=== PATIENT | male | born 1975 | race Caucasian/White ===

== ENCOUNTER 2017-11-11 20:05 | Inpatient (IN) | payer BC ==
[~2017-11-11 20:05] MED LIST: GENTAMICIN IV PER PHARMACY XX
[2017-11-11] MEDS: SOD CHLORIDE 0.9% 1,000 ML IV ×3 (20:30→23:05)
[2017-11-11] MEDS: NORepinephrine 8MG/250 ML (PMX 250 ML IV (21:00)
[2017-11-11 21:36] LABS: AADO2 Arterial 428.1 mmHg (7.0-24.0); Arterial Base Excess -9.5 mmol/L (-3.0-3); Arterial Blood Gas Oxygen Sat 99.1 mmHG (95.0-98.0); Arterial COHb 0.3 % (0.0-3.0); Arterial Fraction of Oxyhgb 98.4 % (93.0-99.0); Arterial HCO3 17.7 mmol/L (22.0-26.0); Arterial MetHb 0.4 % (0.0-1.5); Arterial Total Hemglobin 13.5 g/dl (12.0-18.0); Arterial pCO2 43.4 mmhg (35-45); MODE VENT - AC; Site Right Brachial
[2017-11-11] MEDS ORDERED: GLUCAGON 1 MG INJ IM (23:30)
[2017-11-11] MEDS ORDERED: GLUCOSE GEL 15 GRAM TUBE PO ×2 (23:30)
[2017-11-11] MEDS ORDERED: GLUCOSE GEL 15 GRAM TUBE BUCCAL (23:30)
[2017-11-11] MEDS ORDERED: DEXTROSE 50% 50 ML SYRINGE IV ×2 (23:30)
[2017-11-11] MEDS: LEVALBUTEROL (NEB) 0.63 MG/3 ML AMP HHN (23:59)
[2017-11-11] MEDS: IPRATROPIUM (NEB) 0.5 MG/2.5 ML AMP HHN (23:59)
[2017-11-12] MEDS ORDERED: ACETAMINOPHEN 650 MG SUPP PR
[2017-11-12] MEDS: SOD CHLORIDE 0.9% 1,000 ML IV ×3 (00:05→10:49)
[2017-11-12] MEDS: HYDROCORTISONE 100 MG INJ IV ×4 (00:08→21:42)
[2017-11-12] MEDS: INSULIN ASPART [NOVOLOG] 3 ML PEN SC ×6 (01:26→21:49)
[2017-11-12] MEDS: LEVALBUTEROL (NEB) 0.63 MG/3 ML AMP HHN ×4 (02:43→19:52)
[2017-11-12] MEDS: IPRATROPIUM (NEB) 0.5 MG/2.5 ML AMP HHN ×4 (02:43→19:52)
[2017-11-12] MEDS: NORepinephrine 8MG/250 ML (PMX 250 ML IV (03:17)
[2017-11-12] MEDS: ACETAMINOPHEN 650MG/20.3ML CUP GTB (04:13)
[2017-11-12 04:58] LABS: ADD MAN DIFF? NO
[2017-11-12 05:01] LABS: ABNORMAL IP MESSAGE 1; BASOPHIL # 0.1 10^3/ul (0.0-0.1); BASOPHILS % 0.6 % (0.0-2.0); HEMATOCRIT 41.6 % (42.0-52.0); HEMOGLOBIN 12.8 g/dl (14.0-18.0); LYMPHOCYTES # 1.6 10^3/ul (0.8-2.9); LYMPHOCYTES % 7.3 % (15.0-51.0); MEAN CORPUSCULAR HEMOGLOBIN 28.7 pg (29.0-33.0); MEAN CORPUSCULAR HGB CONC 30.8 g/dl (32.0-37.0); MEAN CORPUSCULAR VOLUME 93.3 fl (82.0-101.0); MEAN PLATELET VOLUME 12.9 fl (7.4-10.4); MONOCYTE # 1.9 10^3/ul (0.3-0.9); MONOCYTES % 8.7 % (0.0-11.0); NEUTROPHILS % 82.4 % (39.0-77.0); PLATELET COUNT 323 10^3/UL (140-415); POSITIVE DIFF @See below; RED BLOOD COUNT 4.46 10^6/ul (4.70-6.10); RED CELL DISTRIBUTION WIDTH 19.2 % (11.5-14.5)
[2017-11-12 05:01] LABS: WHITE BLOOD COUNT 21.8 10^3/ul (4.8-10.8)
[2017-11-12 05:25] LABS: VANCOMYCIN,RANDOM 17.7 ug/ml
[2017-11-12 05:25] LABS: ANION GAP 33 (8-16); CARBON DIOXIDE 17 mmol/L (21-31); CHLORIDE 107 mmol/L (97-110); GLUCOSE 201 mg/dl (70-220); MAGNESIUM 3.3 mg/dl (1.7-2.5); POTASSIUM 5.5 mmol/L (3.5-5.1); SODIUM 151 mmol/L (135-144)
[2017-11-12 05:40] LABS: BLOOD UREA NITROGEN 160 mg/dl (7-20); CREATININE 12.03 mg/dl (0.61-1.24)
[2017-11-12] MEDS: SEVELAMER CARBONATE 800 MG TABLET PO ×3 (06:00→21:42)
[2017-11-12] MEDS: LANSOPRAZOLE 30 MG CAP GTB (06:16)
[2017-11-12] MEDS: PIPER-TAZO 2.25 GM (PMX) 50 ML IVPB ×3 (06:16→21:42)
[2017-11-12] MEDS ORDERED: NORepinephrine 8MG/250 ML BAG (07:00)
[2017-11-12 07:35] LABS: AADO2 Arterial 297.6 mmHg (7.0-24.0); Arterial Base Excess -10.2 mmol/L (-3.0-3); Arterial Blood Gas Oxygen Sat 95.3 mmHG (95.0-98.0); Arterial COHb 0.1 % (0.0-3.0); Arterial Fraction of Oxyhgb 94.9 % (93.0-99.0); Arterial MetHb 0.3 % (0.0-1.5); Arterial Total Hemglobin 13.7 g/dl (12.0-18.0); Arterial pCO2 36.5 mmhg (35-45); MODE VENT - AC; Site LB
[2017-11-12] MEDS: DEXTROSE 5%-0.45% NACL 1,000 ML IV (08:25)
[2017-11-12 08:30] LABS: ALANINE AMINOTRANSFERASE 44 IU/L (13-69); ALBUMIN 4.7 g/dl (3.3-4.9); ALKALINE PHOSPHATASE 168 IU/L (42-121); ASPARTATE AMINO TRANSFERASE 47 IU/L (15-46); TOTAL PROTEIN 8.2 g/dl (6.1-8.1)
[2017-11-12] MEDS: ASPIRIN 325 MG TAB GTB (08:34)
[2017-11-12] MEDS: ARTIFICIAL TEARS 15 ML OPH BOTH EYES ×2 (08:34→20:34)
[2017-11-12] MEDS: NYSTATIN SUSP 5 ML CUP PO ×4 (08:39→20:34)
[2017-11-12] MEDS: NYSTATIN 30 GM POWDER BTL TOP ×2 (08:40→20:34)
[2017-11-12] MEDS: MULTIVITAMINS/MINERALS TAB GTB (08:40)
[2017-11-12] MEDS: LACTOBACILLUS RHAMNOSUS CAP PO ×2 (08:40→20:35)
[2017-11-12] MEDS: HEPARIN 5,000 UNIT/0.5 ML VIAL SC ×2 (08:50→20:38)
[2017-11-12] MEDS ORDERED: VANCOMYCIN IV PER PHARMACY XX (09:00)
[2017-11-12] MEDS: [UNRECOGNIZED DRUG - OTHER] XX (09:18)
[2017-11-12] MEDS: PHENYLephrine 20MG IN 250 ML 250 ML IV ×2 (09:29→15:54)
[2017-11-12 10:13] LABS: VANCOMYCIN,RANDOM 18.1 ug/ml
[2017-11-12 12:39] LABS: HAAIG REFLEX REFLEX FILED
[2017-11-12] MEDS: FLUCONAZOLE 100 MG/50 ML (PMX) 50 ML IVPB (12:48)
[2017-11-12 13:36] LABS: HEPATITIS B SURFACE ANTIGEN NEGATIVE (NEGATIVE)
[2017-11-12 13:54] LABS: HEPATITIS B CORE ANTIBODY NEGATIVE (NEGATIVE); HEPATITIS C VIRAL ANTIBODY NEGATIVE (NEGATIVE)
[2017-11-12] MEDS: VANCOMYCIN 1 GM 250 ML IVPB (18:32)
[2017-11-12] MEDS: PHENYLephrine 40 MG in DEXTROSE 5% 496 ML IV ×2 (19:02→23:41)
[2017-11-12] MEDS: HEPARIN 1000 UNITS/ML 10 ML INJ CATHETER (19:17)
[2017-11-12] MEDS: VASOPRESSIN 60 UNIT in DEXTROSE 5% 57 ML IV (20:30)
[2017-11-12] MEDS: ATORVASTATIN 80 MG TAB GTB (20:35)
[2017-11-12] MEDS: MIDODRINE 5 MG TAB GTB (20:35)
[2017-11-12] MEDS: LORAZEPAM 2 MG INJ IV (20:40)
[2017-11-12] MEDS: MELATONIN 3 MG TABLET NGT (21:42)
[2017-11-12] MEDS: GENTAMICIN IN NACL, ISO-OSM 50 ML IVPB (23:41)
[2017-11-13 01:09] LABS: OCCULT BLOOD STOOL POSITIVE (NEGATIVE)
[2017-11-13] MEDS: LEVALBUTEROL (NEB) 0.63 MG/3 ML AMP HHN ×4 (01:31→19:36)
[2017-11-13] MEDS: IPRATROPIUM (NEB) 0.5 MG/2.5 ML AMP HHN ×4 (01:31→19:36)
[2017-11-13] MEDS: INSULIN ASPART [NOVOLOG] 3 ML PEN SC ×6 (01:45→21:21)
[2017-11-13 04:51] LABS: ADD MAN DIFF? NO
[2017-11-13 04:58] LABS: WHITE BLOOD COUNT 16.4 10^3/ul (4.8-10.8)
[2017-11-13 04:58] LABS: ABNORMAL IP MESSAGE 1; BASOPHIL # 0.1 10^3/ul (0.0-0.1); BASOPHILS % 0.4 % (0.0-2.0); HEMATOCRIT 32.9 % (42.0-52.0); LYMPHOCYTES # 1.6 10^3/ul (0.8-2.9); LYMPHOCYTES % 9.6 % (15.0-51.0); MEAN CORPUSCULAR HGB CONC 30.4 g/dl (32.0-37.0); MEAN CORPUSCULAR VOLUME 95.4 fl (82.0-101.0); MEAN PLATELET VOLUME 13.2 fl (7.4-10.4); MONOCYTE # 1.7 10^3/ul (0.3-0.9); MONOCYTES % 10.3 % (0.0-11.0); NEUTROPHILS % 79.1 % (39.0-77.0); PLATELET COUNT 246 10^3/UL (140-415); POSITIVE DIFF @See below; RED BLOOD COUNT 3.45 10^6/ul (4.70-6.10); RED CELL DISTRIBUTION WIDTH 19.3 % (11.5-14.5)
[2017-11-13 05:01] LABS: RETICULOCYTE COUNT # 0.093 X10^6 (0.020-0.110); RETICULOCYTE COUNT % 2.7 % (0.5-1.5)
[2017-11-13 05:01] LABS: RETICULOCYTE RBC 3.42
[2017-11-13 05:19] LABS: ALANINE AMINOTRANSFERASE 42 IU/L (13-69); ALBUMIN 3.3 g/dl (3.3-4.9); ALKALINE PHOSPHATASE 106 IU/L (42-121); ASPARTATE AMINO TRANSFERASE 30 IU/L (15-46); BILIRUBIN,INDIRECT 0.1 mg/dl (0-1.1); BILIRUBIN,TOTAL 0.1 mg/dl (0.2-1.3); TOTAL PROTEIN 5.8 g/dl (6.1-8.1)
[2017-11-13 05:21] LABS: ANION GAP 27 (8-16); CALCIUM 7.4 mg/dl (8.4-10.2); CARBON DIOXIDE 16 mmol/L (21-31); CHLORIDE 90 mmol/L (97-110); CREATININE 10.02 mg/dl (0.61-1.24); MAGNESIUM 2.5 mg/dl (1.7-2.5); PHOSPHORUS 6.1 mg/dl (2.5-4.9); POTASSIUM 4.3 mmol/L (3.5-5.1); SODIUM 129 mmol/L (135-144)
[2017-11-13] MEDS: SEVELAMER CARBONATE 0.8 GM PKT GTB ×3 (05:43→21:14)
[2017-11-13] MEDS: HYDROCORTISONE 100 MG INJ IV ×3 (05:43→21:14)
[2017-11-13] MEDS: PIPER-TAZO 2.25 GM (PMX) 50 ML IVPB ×3 (05:43→21:14)
[2017-11-13] MEDS: LANSOPRAZOLE 30 MG CAP GTB (05:44)
[2017-11-13 05:47] LABS: BLOOD UREA NITROGEN 124 mg/dl (7-20)
[2017-11-13 05:50] LABS: GLUCOSE 758 mg/dl (70-220)
[2017-11-13] MEDS: PHENYLephrine 40 MG in DEXTROSE 5% 496 ML IV (06:40)
[2017-11-13 07:08] LABS: ANION GAP 30 (8-16); CALCIUM 8.9 mg/dl (8.4-10.2); CARBON DIOXIDE 16 mmol/L (21-31); CHLORIDE 104 mmol/L (97-110); GLUCOSE 166 mg/dl (70-220); POTASSIUM 4.9 mmol/L (3.5-5.1); SODIUM 145 mmol/L (135-144)
[2017-11-13 07:17] LABS: BLOOD UREA NITROGEN 141 mg/dl (7-20)
[2017-11-13] MEDS: VASOPRESSIN 60 UNIT in DEXTROSE 5% 57 ML IV ×2 (08:30→20:30)
[2017-11-13 08:39] LABS: LACTIC ACID 0.8 mmol/L (0.5-2.0)
[2017-11-13] MEDS: ASPIRIN 325 MG TAB GTB (08:59)
[2017-11-13] MEDS: LACTOBACILLUS RHAMNOSUS CAP PO ×2 (08:59→21:15)
[2017-11-13] MEDS: DEXTROSE 5% 1,000 ML IV (08:59)
[2017-11-13] MEDS: NYSTATIN 30 GM POWDER BTL TOP ×2 (09:00→21:21)
[2017-11-13] MEDS: ARTIFICIAL TEARS 15 ML OPH BOTH EYES ×2 (09:00→21:22)
[2017-11-13] MEDS: MULTIVITAMINS/MINERALS TAB GTB (09:02)
[2017-11-13] MEDS: HEPARIN 5,000 UNIT/0.5 ML VIAL SC ×2 (09:04→21:17)
[2017-11-13] MEDS: FLUCONAZOLE 100 MG/50 ML (PMX) 50 ML IVPB (12:54)
[2017-11-13] MEDS: GENTAMICIN 100 MG/50 ML NS IVPB (16:01)
[2017-11-13] MEDS: MIDODRINE 5 MG TAB GTB (21:00)
[2017-11-13] MEDS: MELATONIN 3 MG TABLET NGT (21:14)
[2017-11-13] MEDS: ATORVASTATIN 80 MG TAB GTB (21:15)
[2017-11-13] MEDS: LORAZEPAM 2 MG INJ IV (23:05)
[2017-11-14] MEDS: LEVALBUTEROL (NEB) 0.63 MG/3 ML AMP HHN (01:44)
[2017-11-14] MEDS: IPRATROPIUM (NEB) 0.5 MG/2.5 ML AMP HHN ×4 (01:44→20:06)
[2017-11-14] MEDS: INSULIN ASPART [NOVOLOG] 3 ML PEN SC ×6 (01:56→21:00)
[2017-11-14] MEDS: DEXTROSE 5% 1,000 ML IV (04:42)
[2017-11-14 04:57] LABS: ADD MAN DIFF? NO
[2017-11-14 04:59] LABS: BASOPHILS % 0.3 % (0.0-2.0); EOSINOPHILS % 0.1 % (0.0-7.0); HEMATOCRIT 32.7 % (42.0-52.0); HEMOGLOBIN 10.3 g/dl (14.0-18.0); LYMPHOCYTES # 1.3 10^3/ul (0.8-2.9); LYMPHOCYTES % 14.2 % (15.0-51.0); MEAN CORPUSCULAR HEMOGLOBIN 28.6 pg (29.0-33.0); MEAN CORPUSCULAR HGB CONC 31.5 g/dl (32.0-37.0); MEAN CORPUSCULAR VOLUME 90.8 fl (82.0-101.0); MEAN PLATELET VOLUME 12.7 fl (7.4-10.4); MONOCYTE # 1.2 10^3/ul (0.3-0.9); MONOCYTES % 13.6 % (0.0-11.0); NEUTROPHIL # 6.5 10^3/ul (1.6-7.5); NEUTROPHILS % 71.4 % (39.0-77.0); NUCLEATED RED BLOOD CELLS% 0.2 /100WBC (0.0-0.0); PLATELET COUNT 183 10^3/UL (140-415); RED CELL DISTRIBUTION WIDTH 19.3 % (11.5-14.5)
[2017-11-14 04:59] LABS: WHITE BLOOD COUNT 9.1 10^3/ul (4.8-10.8)
[2017-11-14 05:38] LABS: ANION GAP 23 (8-16); BLOOD UREA NITROGEN 88 mg/dl (7-20); CALCIUM 9.5 mg/dl (8.4-10.2); CARBON DIOXIDE 25 mmol/L (21-31); CHLORIDE 99 mmol/L (97-110); CREATININE 8.64 mg/dl (0.61-1.24); GLUCOSE 158 mg/dl (70-220); MAGNESIUM 2.5 mg/dl (1.7-2.5); PHOSPHORUS 7.2 mg/dl (2.5-4.9); POTASSIUM 4.2 mmol/L (3.5-5.1); SODIUM 143 mmol/L (135-144)
[2017-11-14] MEDS: LANSOPRAZOLE 30 MG CAP GTB (05:46)
[2017-11-14] MEDS: HYDROCORTISONE 100 MG INJ IV ×2 (05:46→13:57)
[2017-11-14] MEDS: SEVELAMER CARBONATE 0.8 GM PKT GTB ×2 (05:46→13:57)
[2017-11-14] MEDS: PIPER-TAZO 2.25 GM (PMX) 50 ML IVPB ×2 (05:46→13:57)
[2017-11-14] MEDS ORDERED: IPRATROPIUM (HFA) 12.9 GM INHALER INH ×2 (06:00→08:00)
[2017-11-14] MEDS ORDERED: LEVALBUTEROL (HFA) 15 GM INHALER INH (06:00)
[2017-11-14 07:24] LABS: ALANINE AMINOTRANSFERASE 51 IU/L (13-69); ALBUMIN 4.2 g/dl (3.3-4.9); ALKALINE PHOSPHATASE 128 IU/L (42-121); ASPARTATE AMINO TRANSFERASE 43 IU/L (15-46); BILIRUBIN,INDIRECT 0.2 mg/dl (0-1.1); BILIRUBIN,TOTAL 0.2 mg/dl (0.2-1.3); TOTAL PROTEIN 7.4 g/dl (6.1-8.1)
[2017-11-14] MEDS: AMLODIPINE 10 MG TAB GTB (08:17)
[2017-11-14] MEDS: ARTIFICIAL TEARS 15 ML OPH BOTH EYES ×2 (08:17→21:00)
[2017-11-14] MEDS: NYSTATIN 30 GM POWDER BTL TOP (08:17)
[2017-11-14] MEDS: LACTOBACILLUS RHAMNOSUS CAP PO (08:17)
[2017-11-14] MEDS: LORAZEPAM 2 MG INJ IV ×2 (08:17→14:37)
[2017-11-14] MEDS: ASPIRIN 325 MG TAB GTB (08:17)
[2017-11-14] MEDS: MULTIVITAMINS/MINERALS TAB GTB (08:18)
[2017-11-14] MEDS: VASOPRESSIN 60 UNIT in DEXTROSE 5% 57 ML IV ×2 (08:30→20:01)
[2017-11-14] MEDS: HEPARIN 5,000 UNIT/0.5 ML VIAL SC (08:33)
[2017-11-14] MEDS: LEVALBUTEROL (HFA) 15 GM INHALER INH ×3 (09:11→20:06)
[2017-11-14 09:49] LABS: AADO2 Arterial 324.6 mmHg (7.0-24.0); Allen Test ACCEPTAB; Arterial Base Excess -0.9 mmol/L (-3.0-3); Arterial COHb 0.3 % (0.0-3.0); Arterial Fraction of Oxyhgb 89.6 % (93.0-99.0); Arterial HCO3 23.4 mmol/L (22.0-26.0); Arterial MetHb 0.1 % (0.0-1.5); Arterial Total Hemglobin 11.8 g/dl (12.0-18.0); Arterial pCO2 37.2 mmhg (35-45); MODE VENT - AC; Site Right Radial
[2017-11-14] MEDS: FLUCONAZOLE 100 MG/50 ML (PMX) 50 ML IVPB (12:22)
[2017-11-14] MEDS: EPOETIN 10000 UNITS/1 ML INJ (ESRD) SC (17:10)
[2017-11-14 18:13] LABS: HEPATITIS B SURFACE ANTIBODY NEGATIVE (NEGATIVE)
[2017-11-15] MEDS: DEXTROSE 5% 1,000 ML IV
[2017-11-15] MEDS: INSULIN ASPART [NOVOLOG] 3 ML PEN SC ×6 (01:00→21:00)
[2017-11-15] MEDS: ATORVASTATIN 80 MG TAB GTB ×2 (01:41→22:22)
[2017-11-15] MEDS: MULTIVITAMINS/MINERALS TAB GTB (01:41)
[2017-11-15] MEDS: MELATONIN 3 MG TABLET NGT ×2 (01:41→22:22)
[2017-11-15] MEDS: HYDROCORTISONE 100 MG INJ IV ×4 (01:42→22:23)
[2017-11-15] MEDS: LACTOBACILLUS RHAMNOSUS CAP PO ×3 (01:42→21:00)
[2017-11-15] MEDS: PIPER-TAZO 2.25 GM (PMX) 50 ML IVPB ×4 (01:42→22:23)
[2017-11-15] MEDS: NYSTATIN 30 GM POWDER BTL TOP ×3 (01:42→21:00)
[2017-11-15] MEDS: HEPARIN 5,000 UNIT/0.5 ML VIAL SC ×3 (01:43→22:25)
[2017-11-15] MEDS: NYSTATIN SUSP 5 ML CUP PO ×4 (01:50→18:02)
[2017-11-15] MEDS: SEVELAMER CARBONATE 0.8 GM PKT GTB ×4 (01:50→22:22)
[2017-11-15] MEDS: IPRATROPIUM (NEB) 0.5 MG/2.5 ML AMP HHN ×4 (02:11→19:56)
[2017-11-15] MEDS: LEVALBUTEROL (HFA) 15 GM INHALER INH ×4 (02:12→20:08)
[2017-11-15 05:21] LABS: ADD MAN DIFF? NO
[2017-11-15 05:23] LABS: WHITE BLOOD COUNT 10.5 10^3/ul (4.8-10.8)
[2017-11-15 05:23] LABS: BASOPHILS % 0.3 % (0.0-2.0); EOSINOPHILS % 0.1 % (0.0-7.0); HEMATOCRIT 37.2 % (42.0-52.0); HEMOGLOBIN 11.8 g/dl (14.0-18.0); LYMPHOCYTES % 9.6 % (15.0-51.0); MEAN CORPUSCULAR HEMOGLOBIN 29.1 pg (29.0-33.0); MEAN CORPUSCULAR HGB CONC 31.7 g/dl (32.0-37.0); MEAN CORPUSCULAR VOLUME 91.9 fl (82.0-101.0); MONOCYTE # 1.2 10^3/ul (0.3-0.9); MONOCYTES % 10.9 % (0.0-11.0); NEUTROPHIL # 8.2 10^3/ul (1.6-7.5); NEUTROPHILS % 78.2 % (39.0-77.0); NUCLEATED RED BLOOD CELLS% 0.4 /100WBC (0.0-0.0); PLATELET COUNT 195 10^3/UL (140-415); RED BLOOD COUNT 4.05 10^6/ul (4.70-6.10); RED CELL DISTRIBUTION WIDTH 19.6 % (11.5-14.5)
[2017-11-15] MEDS: LANSOPRAZOLE 30 MG CAP GTB (05:42)
[2017-11-15 05:54] LABS: ANION GAP 25 (8-16); BLOOD UREA NITROGEN 57 mg/dl (7-20); CALCIUM 10.3 mg/dl (8.4-10.2); CARBON DIOXIDE 24 mmol/L (21-31); CHLORIDE 98 mmol/L (97-110); GLUCOSE 162 mg/dl (70-220); MAGNESIUM 2.6 mg/dl (1.7-2.5); PHOSPHORUS 6.1 mg/dl (2.5-4.9); POTASSIUM 3.6 mmol/L (3.5-5.1); SODIUM 143 mmol/L (135-144)
[2017-11-15 06:00] LABS: CREATININE 6.45 mg/dl (0.61-1.24)
[2017-11-15] MEDS: AMLODIPINE 10 MG TAB GTB (09:00)
[2017-11-15] MEDS: ARTIFICIAL TEARS 15 ML OPH BOTH EYES ×2 (09:11→21:00)
[2017-11-15] MEDS: ASPIRIN 325 MG TAB GTB (09:31)
[2017-11-15] MEDS: FLUCONAZOLE 100 MG/50 ML (PMX) 50 ML IVPB (15:58)
[2017-11-16] MEDS: INSULIN ASPART [NOVOLOG] 3 ML PEN SC ×6 (01:18→20:41)
[2017-11-16] MEDS: LEVALBUTEROL (HFA) 15 GM INHALER INH ×4 (01:19→19:49)
[2017-11-16] MEDS: IPRATROPIUM (NEB) 0.5 MG/2.5 ML AMP HHN ×4 (01:27→19:48)
[2017-11-16] MEDS: PIPER-TAZO 2.25 GM (PMX) 50 ML IVPB ×3 (05:27→22:00)
[2017-11-16] MEDS: HYDROCORTISONE 100 MG INJ IV ×3 (05:27→22:00)
[2017-11-16] MEDS: NYSTATIN SUSP 5 ML CUP PO ×4 (05:28→18:08)
[2017-11-16] MEDS: SEVELAMER CARBONATE 0.8 GM PKT GTB ×3 (05:28→22:00)
[2017-11-16] MEDS: LANSOPRAZOLE 30 MG CAP GTB (05:28)
[2017-11-16 08:03] LABS: ADD MAN DIFF? NO
[2017-11-16 08:10] LABS: WHITE BLOOD COUNT 11.2 10^3/ul (4.8-10.8)
[2017-11-16 08:10] LABS: ABNORMAL IP MESSAGE 1; BASOPHILS % 0.4 % (0.0-2.0); EOSINOPHILS % 0.3 % (0.0-7.0); HEMOGLOBIN 12.1 g/dl (14.0-18.0); LYMPHOCYTES # 1.4 10^3/ul (0.8-2.9); LYMPHOCYTES % 12.2 % (15.0-51.0); MEAN CORPUSCULAR HEMOGLOBIN 28.9 pg (29.0-33.0); MEAN CORPUSCULAR VOLUME 93.3 fl (82.0-101.0); MEAN PLATELET VOLUME 12.7 fl (7.4-10.4); MONOCYTE # 1.9 10^3/ul (0.3-0.9); MONOCYTES % 17.1 % (0.0-11.0); NEUTROPHIL # 7.7 10^3/ul (1.6-7.5); NEUTROPHILS % 68.4 % (39.0-77.0); NUCLEATED RED BLOOD CELLS # 0.1 10^3/ul (0.0-0.0); NUCLEATED RED BLOOD CELLS% 0.9 /100WBC (0.0-0.0); PLATELET COUNT 226 10^3/UL (140-415); POSITIVE DIFF @See below; RED BLOOD COUNT 4.18 10^6/ul (4.70-6.10); RED CELL DISTRIBUTION WIDTH 19.3 % (11.5-14.5)
[2017-11-16 08:18] LABS: ANION GAP 28 (8-16); BLOOD UREA NITROGEN 93 mg/dl (7-20); CALCIUM 9.9 mg/dl (8.4-10.2); CARBON DIOXIDE 21 mmol/L (21-31); CHLORIDE 99 mmol/L (97-110); GLUCOSE 176 mg/dl (70-220); MAGNESIUM 3.1 mg/dl (1.7-2.5); PHOSPHORUS 8.3 mg/dl (2.5-4.9); POTASSIUM 3.3 mmol/L (3.5-5.1); SODIUM 145 mmol/L (135-144)
[2017-11-16 08:28] LABS: CREATININE 8.67 mg/dl (0.61-1.24)
[2017-11-16] MEDS: ACETAMINOPHEN 650MG/20.3ML CUP GTB (08:48)
[2017-11-16] MEDS: MULTIVITAMINS/MINERALS TAB GTB (08:48)
[2017-11-16] MEDS: ASPIRIN 325 MG TAB GTB (08:48)
[2017-11-16] MEDS: LACTOBACILLUS RHAMNOSUS CAP PO ×2 (08:49→20:27)
[2017-11-16] MEDS: ARTIFICIAL TEARS 15 ML OPH BOTH EYES ×2 (08:50→21:00)
[2017-11-16] MEDS: NYSTATIN 30 GM POWDER BTL TOP ×2 (08:50→21:05)
[2017-11-16] MEDS: HEPARIN 5,000 UNIT/0.5 ML VIAL SC ×2 (08:58→20:41)
[2017-11-16] MEDS: AMLODIPINE 10 MG TAB GTB ×2 (09:00→18:09)
[2017-11-16] MEDS: HEPARIN 1000 UNITS/ML 10 ML INJ CATHETER (12:15)
[2017-11-16] MEDS: ONDANSETRON 4 MG INJ IV (12:57)
[2017-11-16] MEDS ORDERED: ONDANSETRON 4 MG INJ IV (13:00)
[2017-11-16] MEDS: FLUCONAZOLE 100 MG/50 ML (PMX) 50 ML IVPB (14:13)
[2017-11-16] MEDS: MELATONIN 3 MG TABLET NGT (20:27)
[2017-11-16] MEDS: ATORVASTATIN 80 MG TAB GTB (20:27)
[2017-11-17] MEDS: NYSTATIN SUSP 5 ML CUP PO ×4 (00:27→17:34)
[2017-11-17] MEDS: INSULIN ASPART [NOVOLOG] 3 ML PEN SC ×6 (00:34→21:35)
[2017-11-17] MEDS: ONDANSETRON 4 MG INJ IV (00:35)
[2017-11-17] MEDS: LEVALBUTEROL (HFA) 15 GM INHALER INH ×4 (02:24→19:50)
[2017-11-17] MEDS: IPRATROPIUM (NEB) 0.5 MG/2.5 ML AMP HHN ×4 (02:24→19:56)
[2017-11-17] MEDS: HYDROCORTISONE 100 MG INJ IV ×2 (05:52→21:25)
[2017-11-17] MEDS: SEVELAMER CARBONATE 0.8 GM PKT GTB ×3 (05:52→21:25)
[2017-11-17] MEDS: PIPER-TAZO 2.25 GM (PMX) 50 ML IVPB ×3 (05:52→21:25)
[2017-11-17] MEDS: LANSOPRAZOLE 30 MG CAP GTB (05:53)
[2017-11-17 08:39] LABS: ADD MAN DIFF? NO
[2017-11-17 08:44] LABS: BASOPHILS % 0.2 % (0.0-2.0); EOSINOPHILS % 0.3 % (0.0-7.0); HEMATOCRIT 42.2 % (42.0-52.0); HEMOGLOBIN 12.9 g/dl (14.0-18.0); LYMPHOCYTES # 1.2 10^3/ul (0.8-2.9); MEAN CORPUSCULAR HEMOGLOBIN 27.9 pg (29.0-33.0); MEAN CORPUSCULAR HGB CONC 30.6 g/dl (32.0-37.0); MEAN CORPUSCULAR VOLUME 91.3 fl (82.0-101.0); MEAN PLATELET VOLUME 12.6 fl (7.4-10.4); MONOCYTE # 1.4 10^3/ul (0.3-0.9); MONOCYTES % 10.7 % (0.0-11.0); NEUTROPHIL # 10.1 10^3/ul (1.6-7.5); NEUTROPHILS % 77.6 % (39.0-77.0); NUCLEATED RED BLOOD CELLS # 0.1 10^3/ul (0.0-0.0); NUCLEATED RED BLOOD CELLS% 0.5 /100WBC (0.0-0.0); PLATELET COUNT 246 10^3/UL (140-415); RED BLOOD COUNT 4.62 10^6/ul (4.70-6.10); RED CELL DISTRIBUTION WIDTH 19.5 % (11.5-14.5)
[2017-11-17 08:44] LABS: WHITE BLOOD COUNT 12.9 10^3/ul (4.8-10.8)
[2017-11-17 09:04] LABS: ANION GAP 28 (8-16); BLOOD UREA NITROGEN 92 mg/dl (7-20); CALCIUM 9.6 mg/dl (8.4-10.2); CARBON DIOXIDE 21 mmol/L (21-31); CHLORIDE 94 mmol/L (97-110); GLUCOSE 190 mg/dl (70-220); SODIUM 140 mmol/L (135-144)
[2017-11-17 09:13] LABS: CREATININE 7.74 mg/dl (0.61-1.24)
[2017-11-17] MEDS: ARTIFICIAL TEARS 15 ML OPH BOTH EYES ×2 (09:41→21:36)
[2017-11-17] MEDS: ASPIRIN 325 MG TAB GTB (09:41)
[2017-11-17] MEDS: MULTIVITAMINS/MINERALS TAB GTB (09:43)
[2017-11-17] MEDS: LACTOBACILLUS RHAMNOSUS CAP PO ×2 (09:43→21:35)
[2017-11-17] MEDS: NYSTATIN 30 GM POWDER BTL TOP ×2 (09:43→21:36)
[2017-11-17] MEDS: HEPARIN 5,000 UNIT/0.5 ML VIAL SC ×2 (09:50→21:33)
[2017-11-17] MEDS: POTASSIUM CHLORIDE 20 MEQ POWDER FOR ORAL SOLN GTB (12:54)
[2017-11-17] MEDS: FLUCONAZOLE 100 MG/50 ML (PMX) 50 ML IVPB (12:55)
[2017-11-17] MEDS: MELATONIN 3 MG TABLET NGT (21:25)
[2017-11-17] MEDS: ATORVASTATIN 80 MG TAB GTB (21:26)
[2017-11-17] MEDS: METOPROLOL 50 MG TAB GTB (21:36)
[2017-11-18] MEDS: NYSTATIN SUSP 5 ML CUP PO ×4 (00:42→18:26)
[2017-11-18] MEDS: INSULIN ASPART [NOVOLOG] 3 ML PEN SC ×6 (00:46→21:18)
[2017-11-18] MEDS: LEVALBUTEROL (HFA) 15 GM INHALER INH ×5 (02:22→19:13)
[2017-11-18] MEDS: IPRATROPIUM (NEB) 0.5 MG/2.5 ML AMP HHN ×5 (02:26→19:13)
[2017-11-18] MEDS: LANSOPRAZOLE 30 MG CAP GTB (05:57)
[2017-11-18] MEDS: SEVELAMER CARBONATE 0.8 GM PKT GTB ×3 (05:57→21:13)
[2017-11-18] MEDS: PIPER-TAZO 2.25 GM (PMX) 50 ML IVPB ×3 (05:57→21:23)
[2017-11-18 06:33] LABS: ADD MAN DIFF? NO; HAAIG REFLEX REFLEX FILED
[2017-11-18 06:34] LABS: ABNORMAL IP MESSAGE 1; BASOPHIL # 0.1 10^3/ul (0.0-0.1); BASOPHILS % 0.5 % (0.0-2.0); EOSINOPHILS # 0.3 10^3/ul (0.0-0.5); EOSINOPHILS % 2.2 % (0.0-7.0); HEMATOCRIT 41.1 % (42.0-52.0); HEMOGLOBIN 13.2 g/dl (14.0-18.0); LYMPHOCYTES # 1.6 10^3/ul (0.8-2.9); LYMPHOCYTES % 11.7 % (15.0-51.0); MEAN CORPUSCULAR HEMOGLOBIN 29.2 pg (29.0-33.0); MEAN CORPUSCULAR HGB CONC 32.1 g/dl (32.0-37.0); MEAN CORPUSCULAR VOLUME 90.9 fl (82.0-101.0); MEAN PLATELET VOLUME 13.1 fl (7.4-10.4); MONOCYTE # 2.3 10^3/ul (0.3-0.9); MONOCYTES % 17.2 % (0.0-11.0); NEUTROPHILS % 66.1 % (39.0-77.0); NUCLEATED RED BLOOD CELLS% 0.1 /100WBC (0.0-0.0); PLATELET COUNT 265 10^3/UL (140-415); POSITIVE DIFF @See below; RED BLOOD COUNT 4.52 10^6/ul (4.70-6.10); RED CELL DISTRIBUTION WIDTH 18.6 % (11.5-14.5)
[2017-11-18 06:34] LABS: WHITE BLOOD COUNT 13.6 10^3/ul (4.8-10.8)
[2017-11-18 07:02] LABS: ANION GAP 31 (8-16); CALCIUM 9.2 mg/dl (8.4-10.2); CARBON DIOXIDE 18 mmol/L (21-31); CHLORIDE 93 mmol/L (97-110); GLUCOSE 163 mg/dl (70-220); MAGNESIUM 2.8 mg/dl (1.7-2.5); PHOSPHORUS 10.4 mg/dl (2.5-4.9); POTASSIUM 3.1 mmol/L (3.5-5.1); SODIUM 139 mmol/L (135-144)
[2017-11-18 07:16] LABS: BLOOD UREA NITROGEN 126 mg/dl (7-20); CREATININE 9.12 mg/dl (0.61-1.24)
[2017-11-18 07:32] LABS: HEPATITIS B SURFACE ANTIGEN NEGATIVE (NEGATIVE)
[2017-11-18 07:49] LABS: HEPATITIS C VIRAL ANTIBODY NEGATIVE (NEGATIVE)
[2017-11-18 08:18] LABS: HEPATITIS B CORE ANTIBODY NEGATIVE (NEGATIVE)
[2017-11-18] MEDS: LACTOBACILLUS RHAMNOSUS CAP PO ×2 (09:00→21:22)
[2017-11-18] MEDS: MULTIVITAMINS/MINERALS TAB GTB (09:28)
[2017-11-18] MEDS: POTASSIUM CHLORIDE 20 MEQ POWDER FOR ORAL SOLN GTB (09:29)
[2017-11-18] MEDS: ASPIRIN 325 MG TAB GTB (09:29)
[2017-11-18] MEDS: HYDROCORTISONE 100 MG INJ IV (09:29)
[2017-11-18] MEDS: HEPARIN 5,000 UNIT/0.5 ML VIAL SC ×2 (09:31→21:18)
[2017-11-18] MEDS: ARTIFICIAL TEARS 15 ML OPH BOTH EYES ×2 (09:33→21:12)
[2017-11-18] MEDS: METOPROLOL 50 MG TAB GTB ×2 (09:33→21:00)
[2017-11-18] MEDS: FLUCONAZOLE 100 MG/50 ML (PMX) 50 ML IVPB (12:17)
[2017-11-18] MEDS: HEPARIN 1000 UNITS/ML 10 ML INJ CATHETER (18:02)
[2017-11-18] MEDS: ATORVASTATIN 80 MG TAB GTB (21:13)
[2017-11-18] MEDS: MELATONIN 3 MG TABLET NGT (21:22)
[2017-11-19] MEDS: INSULIN ASPART [NOVOLOG] 3 ML PEN SC ×6 (01:00→22:06)
[2017-11-19] MEDS: IPRATROPIUM (NEB) 0.5 MG/2.5 ML AMP HHN ×4 (02:00→20:19)
[2017-11-19] MEDS: LEVALBUTEROL (HFA) 15 GM INHALER INH ×2 (02:00→08:00)
[2017-11-19 02:29] LABS: AADO2 Arterial 531.7 mmHg (7.0-24.0); Arterial Blood Gas Oxygen Sat 98.5 mmHG (95.0-98.0); Arterial COHb 0.7 % (0.0-3.0); Arterial Fraction of Oxyhgb 97.5 % (93.0-99.0); Arterial HCO3 19.5 mmol/L (22.0-26.0); Arterial MetHb 0.3 % (0.0-1.5); Arterial Total Hemglobin 14.6 g/dl (12.0-18.0); Arterial pCO2 38.8 mmhg (35-45); MODE MASK - NRB; Site Right Brachial
[2017-11-19] MEDS: HYDROmorphONE 0.5 MG/0.5 ML SYG IV (03:40)
[2017-11-19 04:23] LABS: AADO2 Arterial 478.4 mmHg (7.0-24.0); Allen Test ACCEPTAB; Arterial Base Excess -6.3 mmol/L (-3.0-3); Arterial Blood Gas Oxygen Sat 99.1 mmHG (95.0-98.0); Arterial COHb 0.2 % (0.0-3.0); Arterial Fraction of Oxyhgb 98.5 % (93.0-99.0); Arterial HCO3 19.5 mmol/L (22.0-26.0); Arterial MetHb 0.4 % (0.0-1.5); Arterial Total Hemglobin 14.2 g/dl (12.0-18.0); Arterial pCO2 39.9 mmhg (35-45); MODE MASK - NRB; Site Right Radial
[2017-11-19 05:28] LABS: ADD MAN DIFF? NO
[2017-11-19 05:41] LABS: ABNORMAL IP MESSAGE 1; BASOPHIL # 0.1 10^3/ul (0.0-0.1); BASOPHILS % 0.5 % (0.0-2.0); EOSINOPHILS # 0.5 10^3/ul (0.0-0.5); EOSINOPHILS % 2.9 % (0.0-7.0); HEMATOCRIT 42.7 % (42.0-52.0); HEMOGLOBIN 13.3 g/dl (14.0-18.0); LYMPHOCYTES # 1.2 10^3/ul (0.8-2.9); LYMPHOCYTES % 6.8 % (15.0-51.0); MEAN CORPUSCULAR HEMOGLOBIN 28.6 pg (29.0-33.0); MEAN CORPUSCULAR HGB CONC 31.1 g/dl (32.0-37.0); MEAN CORPUSCULAR VOLUME 91.8 fl (82.0-101.0); MEAN PLATELET VOLUME 13.4 fl (7.4-10.4); MONOCYTE # 2.6 10^3/ul (0.3-0.9); NEUTROPHIL # 12.5 10^3/ul (1.6-7.5); NEUTROPHILS % 70.9 % (39.0-77.0); NUCLEATED RED BLOOD CELLS% 0.1 /100WBC (0.0-0.0); PLATELET COUNT 290 10^3/UL (140-415); POSITIVE DIFF @See below; RED BLOOD COUNT 4.65 10^6/ul (4.70-6.10)
[2017-11-19 05:41] LABS: WHITE BLOOD COUNT 17.6 10^3/ul (4.8-10.8)
[2017-11-19] MEDS: NYSTATIN SUSP 5 ML CUP PO ×4 (06:00→17:45)
[2017-11-19] MEDS: LANSOPRAZOLE 30 MG CAP GTB (06:00)
[2017-11-19] MEDS: SEVELAMER CARBONATE 0.8 GM PKT GTB ×3 (06:00→22:00)
[2017-11-19 06:04] LABS: ALANINE AMINOTRANSFERASE 52 IU/L (13-69); ALBUMIN 4.1 g/dl (3.3-4.9); ALKALINE PHOSPHATASE 199 IU/L (42-121); ASPARTATE AMINO TRANSFERASE 44 IU/L (15-46); BILIRUBIN,INDIRECT 0.2 mg/dl (0-1.1); BILIRUBIN,TOTAL 0.2 mg/dl (0.2-1.3); TOTAL PROTEIN 7.1 g/dl (6.1-8.1)
[2017-11-19 06:25] LABS: ANION GAP 25 (8-16); BLOOD UREA NITROGEN 95 mg/dl (7-20); CALCIUM 9.1 mg/dl (8.4-10.2); CARBON DIOXIDE 21 mmol/L (21-31); CHLORIDE 96 mmol/L (97-110); GLUCOSE 163 mg/dl (70-220); MAGNESIUM 2.5 mg/dl (1.7-2.5); POTASSIUM 3.4 mmol/L (3.5-5.1); SODIUM 139 mmol/L (135-144)
[2017-11-19 06:32] LABS: CREATININE 7.15 mg/dl (0.61-1.24)
[2017-11-19] MEDS: PIPER-TAZO 2.25 GM (PMX) 50 ML IVPB (06:44)
[2017-11-19] MEDS: METOPROLOL 50 MG TAB GTB ×2 (09:00→21:00)
[2017-11-19] MEDS: ARTIFICIAL TEARS 15 ML OPH BOTH EYES ×2 (09:00→21:22)
[2017-11-19] MEDS: POTASSIUM CHLORIDE 20 MEQ POWDER FOR ORAL SOLN GTB (09:43)
[2017-11-19] MEDS: LACTOBACILLUS RHAMNOSUS CAP PO ×2 (09:44→21:00)
[2017-11-19] MEDS: ASPIRIN 325 MG TAB GTB (09:44)
[2017-11-19] MEDS: predniSONE 20 MG TAB PO (09:44)
[2017-11-19] MEDS: MULTIVITAMINS/MINERALS TAB GTB (09:44)
[2017-11-19] MEDS: HEPARIN 5,000 UNIT/0.5 ML VIAL SC ×2 (09:45→21:00)
[2017-11-19] MEDS ORDERED: VANCOMYCIN IV PER PHARMACY XX (11:30)
[2017-11-19] MEDS: MEROPENEM 500MG/50 ML (PMX) 50 ML IVPB (12:53)
[2017-11-19 12:55] LABS: LACTIC ACID 2.2 mmol/L (0.5-2.0)
[2017-11-19] MEDS: FLUCONAZOLE 100 MG/50 ML (PMX) 50 ML IVPB (12:56)
[2017-11-19] MEDS: VANCOMYCIN 1.25 GM in SOD CHLORIDE 0.9% 250 ML IVPB (13:52)
[2017-11-19] MEDS: LEVALBUTEROL (NEB) 0.63 MG/3 ML AMP HHN ×2 (14:34→20:19)
[2017-11-19] MEDS ORDERED: HYDROmorphONE 2 MG TAB PO (16:00)
[2017-11-19] MEDS: ATORVASTATIN 80 MG TAB GTB (21:00)
[2017-11-19] MEDS: MELATONIN 3 MG TABLET NGT (21:00)
[2017-11-20] MEDS: INSULIN ASPART [NOVOLOG] 3 ML PEN SC ×6 (01:00→21:00)
[2017-11-20] MEDS: LEVALBUTEROL (NEB) 0.63 MG/3 ML AMP HHN ×4 (01:02→19:35)
[2017-11-20] MEDS: IPRATROPIUM (NEB) 0.5 MG/2.5 ML AMP HHN ×5 (01:02→19:35)
[2017-11-20 05:29] LABS: ADD MAN DIFF? NO
[2017-11-20 05:31] LABS: WHITE BLOOD COUNT 15.7 10^3/ul (4.8-10.8)
[2017-11-20 05:31] LABS: ABNORMAL IP MESSAGE 1; BASOPHIL # 0.1 10^3/ul (0.0-0.1); BASOPHILS % 0.6 % (0.0-2.0); EOSINOPHILS # 0.6 10^3/ul (0.0-0.5); EOSINOPHILS % 3.6 % (0.0-7.0); HEMATOCRIT 39.4 % (42.0-52.0); LYMPHOCYTES # 1.8 10^3/ul (0.8-2.9); LYMPHOCYTES % 11.2 % (15.0-51.0); MEAN CORPUSCULAR HEMOGLOBIN 28.4 pg (29.0-33.0); MEAN CORPUSCULAR HGB CONC 30.5 g/dl (32.0-37.0); MEAN CORPUSCULAR VOLUME 93.1 fl (82.0-101.0); MEAN PLATELET VOLUME 13.1 fl (7.4-10.4); MONOCYTE # 2.3 10^3/ul (0.3-0.9); MONOCYTES % 14.7 % (0.0-11.0); NEUTROPHIL # 10.2 10^3/ul (1.6-7.5); NUCLEATED RED BLOOD CELLS% 0.2 /100WBC (0.0-0.0); PLATELET COUNT 291 10^3/UL (140-415); POSITIVE DIFF @See below; RED BLOOD COUNT 4.23 10^6/ul (4.70-6.10); RED CELL DISTRIBUTION WIDTH 18.8 % (11.5-14.5)
[2017-11-20 05:59] LABS: ANION GAP 27 (8-16); BLOOD UREA NITROGEN 119 mg/dl (7-20); CALCIUM 9.8 mg/dl (8.4-10.2); CARBON DIOXIDE 20 mmol/L (21-31); CHLORIDE 97 mmol/L (97-110); GLUCOSE 128 mg/dl (70-220); MAGNESIUM 2.8 mg/dl (1.7-2.5); PHOSPHORUS 10.5 mg/dl (2.5-4.9); POTASSIUM 4.7 mmol/L (3.5-5.1); SODIUM 139 mmol/L (135-144)
[2017-11-20] MEDS: LANSOPRAZOLE 30 MG CAP GTB (06:00)
[2017-11-20] MEDS: SEVELAMER CARBONATE 0.8 GM PKT GTB ×3 (06:00→21:07)
[2017-11-20 06:07] LABS: CREATININE 8.65 mg/dl (0.61-1.24)
[2017-11-20] MEDS: NYSTATIN SUSP 5 ML CUP PO ×4 (06:24→18:36)
[2017-11-20] MEDS: ASPIRIN 325 MG TAB GTB (08:07)
[2017-11-20] MEDS: predniSONE 20 MG TAB PO (08:07)
[2017-11-20] MEDS: METOPROLOL 50 MG TAB GTB ×2 (08:07→21:00)
[2017-11-20] MEDS: ARTIFICIAL TEARS 15 ML OPH BOTH EYES ×2 (08:08→21:00)
[2017-11-20] MEDS: ALBUMIN HUMAN 25% 50 ML IV ×2 (11:42→12:37)
[2017-11-20 14:23] LABS: AADO2 Arterial 587.2 mmHg (7.0-24.0); Allen Test ACCEPTAB; Arterial Base Excess -2.7 mmol/L (-3.0-3); Arterial Blood Gas Oxygen Sat 93.6 mmHG (95.0-98.0); Arterial COHb 0.9 % (0.0-3.0); Arterial Fraction of Oxyhgb 92.5 % (93.0-99.0); Arterial HCO3 21.7 mmol/L (22.0-26.0); Arterial MetHb 0.3 % (0.0-1.5); Arterial Total Hemglobin 13.7 g/dl (12.0-18.0); Arterial pCO2 36.6 mmhg (35-45); MODE TRACH COLLAR; Site Right Radial
[2017-11-20] MEDS: LACTOBACILLUS RHAMNOSUS CAP PO ×2 (14:40→21:00)
[2017-11-20] MEDS: MULTIVITAMINS/MINERALS TAB GTB (14:40)
[2017-11-20] MEDS: MEROPENEM 500MG/50 ML (PMX) 50 ML IVPB (14:41)
[2017-11-20] MEDS: HEPARIN 5,000 UNIT/0.5 ML VIAL SC ×2 (14:52→21:04)
[2017-11-20] MEDS: FLUCONAZOLE 100 MG/50 ML (PMX) 50 ML IVPB (15:02)
[2017-11-20] MEDS: HEPARIN 1000 UNITS/ML 10 ML INJ CATHETER (15:07)
[2017-11-20] MEDS: ATORVASTATIN 80 MG TAB GTB (21:00)
[2017-11-20] MEDS: MELATONIN 3 MG TABLET NGT (21:00)
[2017-11-21] MEDS: NYSTATIN SUSP 5 ML CUP PO ×4 (00:02→17:28)
[2017-11-21] MEDS: INSULIN ASPART [NOVOLOG] 3 ML PEN SC ×6 (01:00→21:00)
[2017-11-21] MEDS: LEVALBUTEROL (NEB) 0.63 MG/3 ML AMP HHN ×4 (01:14→19:57)
[2017-11-21] MEDS: IPRATROPIUM (NEB) 0.5 MG/2.5 ML AMP HHN ×4 (01:14→19:57)
[2017-11-21] MEDS: SEVELAMER CARBONATE 0.8 GM PKT GTB ×3 (05:42→21:21)
[2017-11-21] MEDS: LANSOPRAZOLE 30 MG CAP GTB (05:42)
[2017-11-21 05:53] LABS: ADD MAN DIFF? NO
[2017-11-21 06:05] LABS: WHITE BLOOD COUNT 12.1 10^3/ul (4.8-10.8)
[2017-11-21 06:05] LABS: ABNORMAL IP MESSAGE 1; BASOPHIL # 0.1 10^3/ul (0.0-0.1); BASOPHILS % 0.5 % (0.0-2.0); EOSINOPHILS # 0.7 10^3/ul (0.0-0.5); EOSINOPHILS % 5.9 % (0.0-7.0); HEMATOCRIT 38.1 % (42.0-52.0); HEMOGLOBIN 11.6 g/dl (14.0-18.0); LYMPHOCYTES # 1.5 10^3/ul (0.8-2.9); LYMPHOCYTES % 12.6 % (15.0-51.0); MEAN CORPUSCULAR HEMOGLOBIN 28.4 pg (29.0-33.0); MEAN CORPUSCULAR HGB CONC 30.4 g/dl (32.0-37.0); MEAN CORPUSCULAR VOLUME 93.2 fl (82.0-101.0); MEAN PLATELET VOLUME 12.5 fl (7.4-10.4); MONOCYTE # 1.5 10^3/ul (0.3-0.9); MONOCYTES % 12.5 % (0.0-11.0); NEUTROPHIL # 7.6 10^3/ul (1.6-7.5); NEUTROPHILS % 63.1 % (39.0-77.0); PLATELET COUNT 247 10^3/UL (140-415); POSITIVE DIFF @See below; RED BLOOD COUNT 4.09 10^6/ul (4.70-6.10); RED CELL DISTRIBUTION WIDTH 19.2 % (11.5-14.5)
[2017-11-21 06:29] LABS: ANION GAP 26 (8-16); BLOOD UREA NITROGEN 77 mg/dl (7-20); CALCIUM 9.7 mg/dl (8.4-10.2); CARBON DIOXIDE 22 mmol/L (21-31); CHLORIDE 98 mmol/L (97-110); GLUCOSE 103 mg/dl (70-220); MAGNESIUM 2.7 mg/dl (1.7-2.5); POTASSIUM 4.9 mmol/L (3.5-5.1); SODIUM 141 mmol/L (135-144)
[2017-11-21 06:36] LABS: ALANINE AMINOTRANSFERASE 33 IU/L (13-69); ALBUMIN 4.3 g/dl (3.3-4.9); ALKALINE PHOSPHATASE 102 IU/L (42-121); ASPARTATE AMINO TRANSFERASE 32 IU/L (15-46); BILIRUBIN,INDIRECT 0.2 mg/dl (0-1.1); BILIRUBIN,TOTAL 0.2 mg/dl (0.2-1.3); TOTAL PROTEIN 7.3 g/dl (6.1-8.1)
[2017-11-21 06:39] LABS: VANCOMYCIN,RANDOM 17.4 ug/ml
[2017-11-21 06:40] LABS: CREATININE 6.75 mg/dl (0.61-1.24)
[2017-11-21] MEDS: ASPIRIN 325 MG TAB GTB (08:54)
[2017-11-21] MEDS: MULTIVITAMINS/MINERALS TAB GTB (08:54)
[2017-11-21] MEDS: LACTOBACILLUS RHAMNOSUS CAP PO ×2 (08:54→21:13)
[2017-11-21] MEDS: predniSONE 20 MG TAB PO (08:55)
[2017-11-21] MEDS: MEROPENEM 500MG/50 ML (PMX) 50 ML IVPB (08:55)
[2017-11-21] MEDS: ARTIFICIAL TEARS 15 ML OPH BOTH EYES ×2 (08:56→21:14)
[2017-11-21] MEDS: HEPARIN 5,000 UNIT/0.5 ML VIAL SC ×2 (09:04→21:17)
[2017-11-21] MEDS: METOPROLOL 50 MG TAB GTB ×2 (09:10→21:14)
[2017-11-21 10:54] LABS: CREATINE KINASE 38 IU/L (23-200)
[2017-11-21 11:07] LABS: CK INDEX 19.1; CK-MB 7.25 ng/ml (0.0-2.4)
[2017-11-21 11:10] LABS: TROPONIN-I 0.133 ng/ml (0.000-0.120)
[2017-11-21] MEDS: FLUCONAZOLE 100 MG/50 ML (PMX) 50 ML IVPB (12:25)
[2017-11-21] MEDS: MELATONIN 3 MG TABLET NGT (21:13)
[2017-11-21] MEDS: ATORVASTATIN 80 MG TAB GTB (21:13)
[2017-11-21] MEDS: VANCOMYCIN 1 GM 250 ML IVPB (22:19)
[2017-11-22] MEDS: NYSTATIN SUSP 5 ML CUP PO ×4 (00:08→17:45)
[2017-11-22] MEDS: INSULIN ASPART [NOVOLOG] 3 ML PEN SC ×6 (01:00→21:00)
[2017-11-22] MEDS: LEVALBUTEROL (NEB) 0.63 MG/3 ML AMP HHN ×4 (01:27→20:07)
[2017-11-22] MEDS: IPRATROPIUM (NEB) 0.5 MG/2.5 ML AMP HHN ×4 (01:27→20:07)
[2017-11-22 05:45] LABS: ADD MAN DIFF? NO
[2017-11-22 05:47] LABS: BASOPHIL # 0.1 10^3/ul (0.0-0.1); BASOPHILS % 0.5 % (0.0-2.0); EOSINOPHILS # 0.6 10^3/ul (0.0-0.5); EOSINOPHILS % 4.7 % (0.0-7.0); HEMATOCRIT 39.4 % (42.0-52.0); LYMPHOCYTES # 1.7 10^3/ul (0.8-2.9); MEAN CORPUSCULAR HEMOGLOBIN 28.7 pg (29.0-33.0); MEAN CORPUSCULAR HGB CONC 30.5 g/dl (32.0-37.0); MEAN CORPUSCULAR VOLUME 94.3 fl (82.0-101.0); MEAN PLATELET VOLUME 12.3 fl (7.4-10.4); MONOCYTE # 1.2 10^3/ul (0.3-0.9); NEUTROPHIL # 8.9 10^3/ul (1.6-7.5); NEUTROPHILS % 68.4 % (39.0-77.0); PLATELET COUNT 259 10^3/UL (140-415); RED BLOOD COUNT 4.18 10^6/ul (4.70-6.10); RED CELL DISTRIBUTION WIDTH 18.5 % (11.5-14.5)
[2017-11-22 05:47] LABS: WHITE BLOOD COUNT 13.1 10^3/ul (4.8-10.8)
[2017-11-22] MEDS: SEVELAMER CARBONATE 0.8 GM PKT GTB ×3 (05:50→21:28)
[2017-11-22] MEDS: LANSOPRAZOLE 30 MG CAP GTB (05:51)
[2017-11-22 06:14] LABS: CREATINE KINASE 56 IU/L (23-200)
[2017-11-22 06:20] LABS: ALANINE AMINOTRANSFERASE 29 IU/L (13-69); ALBUMIN 4.2 g/dl (3.3-4.9); ALBUMIN/GLOBULIN RATIO 1.35; ALKALINE PHOSPHATASE 131 IU/L (42-121); ANION GAP 26 (8-16); ASPARTATE AMINO TRANSFERASE 49 IU/L (15-46); BILIRUBIN,INDIRECT 0.1 mg/dl (0-1.1); BILIRUBIN,TOTAL 0.1 mg/dl (0.2-1.3); BLOOD UREA NITROGEN 106 mg/dl (7-20); CALCIUM 9.9 mg/dl (8.4-10.2); CARBON DIOXIDE 22 mmol/L (21-31); CHLORIDE 98 mmol/L (97-110); GLUCOSE 134 mg/dl (70-220); SODIUM 141 mmol/L (135-144); TOTAL PROTEIN 7.3 g/dl (6.1-8.1)
[2017-11-22 06:27] LABS: CK INDEX 10.6; CK-MB 5.94 ng/ml (0.0-2.4)
[2017-11-22 06:31] LABS: CREATININE 8.11 mg/dl (0.61-1.24); TROPONIN-I 0.131 ng/ml (0.000-0.120)
[2017-11-22 07:03] LABS: PHOSPHORUS 11.9 mg/dl (2.5-4.9)
[2017-11-22 07:03] LABS: MAGNESIUM 3.2 mg/dl (1.7-2.5)
[2017-11-22] MEDS: ASPIRIN 325 MG TAB GTB (08:41)
[2017-11-22] MEDS: LACTOBACILLUS RHAMNOSUS CAP PO ×2 (08:42→21:29)
[2017-11-22] MEDS: predniSONE 20 MG TAB PO (08:42)
[2017-11-22] MEDS: ARTIFICIAL TEARS 15 ML OPH BOTH EYES ×2 (08:42→21:31)
[2017-11-22] MEDS: MULTIVITAMINS/MINERALS TAB GTB (08:42)
[2017-11-22] MEDS: MEROPENEM 500MG/50 ML (PMX) 50 ML IVPB (08:42)
[2017-11-22] MEDS: METOPROLOL 50 MG TAB GTB ×2 (08:42→21:31)
[2017-11-22] MEDS: HEPARIN 5,000 UNIT/0.5 ML VIAL SC ×2 (08:45→21:33)
[2017-11-22] MEDS: FLUCONAZOLE 100 MG/50 ML (PMX) 50 ML IVPB (12:46)
[2017-11-22] MEDS: HEPARIN 1000 UNITS/ML 10 ML INJ CATHETER (19:05)
[2017-11-22] MEDS: MELATONIN 3 MG TABLET NGT (21:28)
[2017-11-22] MEDS: ATORVASTATIN 80 MG TAB GTB (21:29)
[2017-11-23] MEDS: NYSTATIN SUSP 5 ML CUP PO ×5 (00:01→21:23)
[2017-11-23] MEDS: INSULIN ASPART [NOVOLOG] 3 ML PEN SC ×6 (01:00→21:00)
[2017-11-23] MEDS: IPRATROPIUM (NEB) 0.5 MG/2.5 ML AMP HHN ×4 (01:55→20:54)
[2017-11-23] MEDS: LEVALBUTEROL (NEB) 0.63 MG/3 ML AMP HHN ×4 (01:55→20:00)
[2017-11-23] MEDS: SEVELAMER CARBONATE 0.8 GM PKT GTB ×2 (05:46→16:00)
[2017-11-23] MEDS: LANSOPRAZOLE 30 MG CAP GTB (05:46)
[2017-11-23 06:38] LABS: ADD MAN DIFF? NO
[2017-11-23 06:49] LABS: WHITE BLOOD COUNT 13.8 10^3/ul (4.8-10.8)
[2017-11-23 06:49] LABS: BASOPHIL # 0.1 10^3/ul (0.0-0.1); BASOPHILS % 0.6 % (0.0-2.0); EOSINOPHILS # 0.5 10^3/ul (0.0-0.5); EOSINOPHILS % 3.9 % (0.0-7.0); LYMPHOCYTES # 1.9 10^3/ul (0.8-2.9); LYMPHOCYTES % 13.9 % (15.0-51.0); MEAN CORPUSCULAR HEMOGLOBIN 28.6 pg (29.0-33.0); MEAN CORPUSCULAR VOLUME 92.3 fl (82.0-101.0); MEAN PLATELET VOLUME 12.3 fl (7.4-10.4); MONOCYTE # 1.2 10^3/ul (0.3-0.9); MONOCYTES % 8.9 % (0.0-11.0); NEUTROPHIL # 9.5 10^3/ul (1.6-7.5); NEUTROPHILS % 68.7 % (39.0-77.0); NUCLEATED RED BLOOD CELLS% 0.1 /100WBC (0.0-0.0); PLATELET COUNT 283 10^3/UL (140-415); RED BLOOD COUNT 4.55 10^6/ul (4.70-6.10); RED CELL DISTRIBUTION WIDTH 18.5 % (11.5-14.5)
[2017-11-23 07:30] LABS: ANION GAP 22 (8-16); BLOOD UREA NITROGEN 63 mg/dl (7-20); CALCIUM 9.4 mg/dl (8.4-10.2); CARBON DIOXIDE 25 mmol/L (21-31); CHLORIDE 95 mmol/L (97-110); CREATININE 6.54 mg/dl (0.61-1.24); GLUCOSE 134 mg/dl (70-220); MAGNESIUM 2.5 mg/dl (1.7-2.5); PHOSPHORUS 6.3 mg/dl (2.5-4.9); POTASSIUM 4.3 mmol/L (3.5-5.1); SODIUM 138 mmol/L (135-144)
[2017-11-23] MEDS: ARTIFICIAL TEARS 15 ML OPH BOTH EYES ×2 (08:30→21:22)
[2017-11-23] MEDS: MULTIVITAMINS/MINERALS TAB GTB (08:30)
[2017-11-23] MEDS: ASPIRIN 325 MG TAB GTB (08:30)
[2017-11-23] MEDS: predniSONE 20 MG TAB PO (08:30)
[2017-11-23] MEDS: METOPROLOL 50 MG TAB GTB ×2 (08:31→21:25)
[2017-11-23] MEDS: MEROPENEM 500MG/50 ML (PMX) 50 ML IVPB (08:32)
[2017-11-23] MEDS: HEPARIN 5,000 UNIT/0.5 ML VIAL SC ×2 (08:36→21:28)
[2017-11-23] MEDS: FLUCONAZOLE 100 MG/50 ML (PMX) 50 ML IVPB (12:45)
[2017-11-23] MEDS: LACTOBACILLUS RHAMNOSUS CAP PO ×2 (16:00→21:23)
[2017-11-23] MEDS: MELATONIN 3 MG TABLET NGT (21:23)
[2017-11-23] MEDS: SEVELAMER CARBONATE 2.4 GM PKT GTB (21:23)
[2017-11-23] MEDS: ATORVASTATIN 80 MG TAB GTB (21:23)
[2017-11-24] MEDS: INSULIN ASPART [NOVOLOG] 3 ML PEN SC ×5 (01:00→18:00)
[2017-11-24] MEDS: IPRATROPIUM (NEB) 0.5 MG/2.5 ML AMP HHN ×4 (01:27→19:48)
[2017-11-24] MEDS: LEVALBUTEROL (NEB) 0.63 MG/3 ML AMP HHN ×4 (01:27→19:48)
[2017-11-24 05:22] LABS: ADD MAN DIFF? NO
[2017-11-24 05:29] LABS: BASOPHIL # 0.1 10^3/ul (0.0-0.1); BASOPHILS % 0.5 % (0.0-2.0); EOSINOPHILS # 0.5 10^3/ul (0.0-0.5); EOSINOPHILS % 3.4 % (0.0-7.0); HEMOGLOBIN 12.6 g/dl (14.0-18.0); LYMPHOCYTES # 1.9 10^3/ul (0.8-2.9); LYMPHOCYTES % 13.1 % (15.0-51.0); MEAN CORPUSCULAR HEMOGLOBIN 28.8 pg (29.0-33.0); MEAN CORPUSCULAR HGB CONC 31.5 g/dl (32.0-37.0); MEAN CORPUSCULAR VOLUME 91.5 fl (82.0-101.0); MEAN PLATELET VOLUME 12.1 fl (7.4-10.4); MONOCYTE # 1.3 10^3/ul (0.3-0.9); MONOCYTES % 8.8 % (0.0-11.0); NEUTROPHIL # 10.3 10^3/ul (1.6-7.5); NEUTROPHILS % 70.9 % (39.0-77.0); PLATELET COUNT 255 10^3/UL (140-415); RED BLOOD COUNT 4.37 10^6/ul (4.70-6.10)
[2017-11-24 05:29] LABS: WHITE BLOOD COUNT 14.6 10^3/ul (4.8-10.8)
[2017-11-24 05:49] LABS: ANION GAP 23 (8-16); BLOOD UREA NITROGEN 85 mg/dl (7-20); CALCIUM 9.5 mg/dl (8.4-10.2); CARBON DIOXIDE 22 mmol/L (21-31); CHLORIDE 96 mmol/L (97-110); GLUCOSE 114 mg/dl (70-220); PHOSPHORUS 8.3 mg/dl (2.5-4.9); POTASSIUM 4.7 mmol/L (3.5-5.1); SODIUM 136 mmol/L (135-144)
[2017-11-24 05:58] LABS: CREATININE 7.25 mg/dl (0.61-1.24)
[2017-11-24] MEDS: SEVELAMER CARBONATE 2.4 GM PKT GTB ×3 (06:26→22:41)
[2017-11-24] MEDS: NYSTATIN SUSP 5 ML CUP PO (06:26)
[2017-11-24] MEDS: LANSOPRAZOLE 30 MG CAP GTB (06:27)
[2017-11-24] MEDS: HEPARIN 1000 UNITS/ML 10 ML INJ CATHETER (13:40)
[2017-11-24] MEDS: ASPIRIN 325 MG TAB GTB (14:20)
[2017-11-24] MEDS: ARTIFICIAL TEARS 15 ML OPH BOTH EYES ×2 (14:20→22:42)
[2017-11-24] MEDS: HEPARIN 5,000 UNIT/0.5 ML VIAL SC ×2 (14:21→22:43)
[2017-11-24] MEDS: predniSONE 20 MG TAB PO (14:22)
[2017-11-24] MEDS: METOPROLOL 50 MG TAB GTB ×2 (14:22→21:00)
[2017-11-24] MEDS: MULTIVITAMINS/MINERALS TAB GTB (14:22)
[2017-11-24] MEDS: LACTOBACILLUS RHAMNOSUS CAP PO ×2 (14:22→22:41)
[2017-11-24] MEDS: MELATONIN 3 MG TABLET NGT (21:00)
[2017-11-24] MEDS: ATORVASTATIN 80 MG TAB GTB (22:42)
[2017-11-25] MEDS: LEVALBUTEROL (NEB) 0.63 MG/3 ML AMP HHN ×4 (01:11→20:06)
[2017-11-25] MEDS: IPRATROPIUM (NEB) 0.5 MG/2.5 ML AMP HHN ×4 (01:11→20:06)
[2017-11-25 05:55] LABS: ADD MAN DIFF? NO
[2017-11-25] MEDS: INSULIN ASPART [NOVOLOG] 3 ML PEN SC ×3 (06:00→12:00)
[2017-11-25 06:05] LABS: BASOPHIL # 0.1 10^3/ul (0.0-0.1); BASOPHILS % 0.4 % (0.0-2.0); EOSINOPHILS # 0.3 10^3/ul (0.0-0.5); EOSINOPHILS % 1.9 % (0.0-7.0); HEMOGLOBIN 13.9 g/dl (14.0-18.0); LYMPHOCYTES # 1.8 10^3/ul (0.8-2.9); LYMPHOCYTES % 11.7 % (15.0-51.0); MEAN CORPUSCULAR HEMOGLOBIN 28.6 pg (29.0-33.0); MEAN CORPUSCULAR HGB CONC 31.6 g/dl (32.0-37.0); MEAN CORPUSCULAR VOLUME 90.5 fl (82.0-101.0); MONOCYTES % 6.7 % (0.0-11.0); NEUTROPHIL # 11.3 10^3/ul (1.6-7.5); PLATELET COUNT 259 10^3/UL (140-415); RED BLOOD COUNT 4.86 10^6/ul (4.70-6.10); RED CELL DISTRIBUTION WIDTH 17.3 % (11.5-14.5)
[2017-11-25 06:05] LABS: WHITE BLOOD COUNT 14.9 10^3/ul (4.8-10.8)
[2017-11-25] MEDS: SEVELAMER CARBONATE 2.4 GM PKT GTB ×3 (06:19→22:28)
[2017-11-25] MEDS: LANSOPRAZOLE 30 MG CAP GTB (06:19)
[2017-11-25 07:06] LABS: ANION GAP 21 (8-16); BLOOD UREA NITROGEN 62 mg/dl (7-20); CALCIUM 10.2 mg/dl (8.4-10.2); CARBON DIOXIDE 23 mmol/L (21-31); CHLORIDE 96 mmol/L (97-110); CREATININE 6.51 mg/dl (0.61-1.24); GLUCOSE 103 mg/dl (70-220); MAGNESIUM 2.9 mg/dl (1.7-2.5); POTASSIUM 5.4 mmol/L (3.5-5.1); SODIUM 135 mmol/L (135-144)
[2017-11-25] MEDS: predniSONE 20 MG TAB PO (08:49)
[2017-11-25] MEDS: ASPIRIN 325 MG TAB GTB (08:49)
[2017-11-25] MEDS: MULTIVITAMINS/MINERALS TAB GTB (08:50)
[2017-11-25] MEDS: METOPROLOL 50 MG TAB GTB ×2 (08:51→21:00)
[2017-11-25] MEDS: HEPARIN 5,000 UNIT/0.5 ML VIAL SC ×2 (09:00→21:00)
[2017-11-25] MEDS: LACTOBACILLUS RHAMNOSUS CAP PO ×2 (09:02→22:28)
[2017-11-25] MEDS: ARTIFICIAL TEARS 15 ML OPH BOTH EYES ×2 (09:02→22:29)
[2017-11-25] MEDS: ATORVASTATIN 80 MG TAB GTB (22:28)
[2017-11-25] MEDS: MELATONIN 3 MG TABLET NGT (22:30)
[2017-11-26] MEDS: LEVALBUTEROL (NEB) 0.63 MG/3 ML AMP HHN ×4 (01:31→21:49)
[2017-11-26] MEDS: IPRATROPIUM (NEB) 0.5 MG/2.5 ML AMP HHN ×4 (01:31→21:49)
[2017-11-26] MEDS: INSULIN ASPART [NOVOLOG] 3 ML PEN SC ×6 (06:00→21:10)
[2017-11-26] MEDS: SEVELAMER CARBONATE 2.4 GM PKT GTB (06:15)
[2017-11-26] MEDS: LANSOPRAZOLE 30 MG CAP GTB (06:15)
[2017-11-26] MEDS: METOPROLOL 50 MG TAB GTB ×2 (10:21→21:12)
[2017-11-26] MEDS: ARTIFICIAL TEARS 15 ML OPH BOTH EYES ×2 (10:21→21:12)
[2017-11-26] MEDS: ASPIRIN 325 MG TAB GTB (10:21)
[2017-11-26] MEDS: LACTOBACILLUS RHAMNOSUS CAP PO ×2 (10:21→21:11)
[2017-11-26] MEDS: MULTIVITAMINS/MINERALS TAB GTB (10:21)
[2017-11-26] MEDS: predniSONE 20 MG TAB PO (10:21)
[2017-11-26] MEDS: HEPARIN 5,000 UNIT/0.5 ML VIAL SC ×2 (10:28→22:13)
[2017-11-26] MEDS: SEVELAMER CARBONATE 0.8 GM PKT GTB ×2 (12:50→21:11)
[2017-11-26] MEDS: ATORVASTATIN 80 MG TAB GTB (21:11)
[2017-11-26] MEDS: MELATONIN 3 MG TABLET NGT (21:11)
[2017-11-26] MEDS: HEPARIN 1000 UNITS/ML 10 ML INJ CATHETER (21:24)
[2017-11-27] MEDS: INSULIN ASPART [NOVOLOG] 3 ML PEN SC ×3 (06:00→17:48)
[2017-11-27] MEDS: LANSOPRAZOLE 30 MG CAP GTB (06:15)
[2017-11-27] MEDS: SEVELAMER CARBONATE 0.8 GM PKT GTB ×3 (06:15→21:10)
[2017-11-27] MEDS: LEVALBUTEROL (NEB) 0.63 MG/3 ML AMP HHN (08:00)
[2017-11-27] MEDS: IPRATROPIUM (NEB) 0.5 MG/2.5 ML AMP HHN (08:00)
[2017-11-27] MEDS: MULTIVITAMINS/MINERALS TAB GTB (10:24)
[2017-11-27] MEDS: LACTOBACILLUS RHAMNOSUS CAP PO ×2 (10:24→21:04)
[2017-11-27] MEDS: ASPIRIN 325 MG TAB GTB (10:24)
[2017-11-27] MEDS: predniSONE 20 MG TAB PO (10:24)
[2017-11-27] MEDS: METOPROLOL 50 MG TAB GTB ×2 (10:25→21:04)
[2017-11-27] MEDS: ARTIFICIAL TEARS 15 ML OPH BOTH EYES ×2 (10:25→21:05)
[2017-11-27] MEDS: HEPARIN 5,000 UNIT/0.5 ML VIAL SC ×2 (10:26→21:23)
[2017-11-27] MEDS ORDERED: LEVALBUTEROL (NEB) 0.63 MG/3 ML AMP HHN (13:00)
[2017-11-27] MEDS ORDERED: IPRATROPIUM (NEB) 0.5 MG/2.5 ML AMP HHN (13:00)
[2017-11-27] MEDS ORDERED: LIDOCAINE 1% (MDV) 10 ML INJ INJ (15:30)
[2017-11-27] MEDS: ATORVASTATIN 80 MG TAB GTB (21:03)
[2017-11-27] MEDS: MELATONIN 3 MG TABLET NGT (21:05)
[2017-11-28] MEDS: LANSOPRAZOLE 30 MG CAP GTB (05:31)
[2017-11-28] MEDS: INSULIN ASPART [NOVOLOG] 3 ML PEN SC ×4 (05:31→17:37)
[2017-11-28] MEDS: SEVELAMER CARBONATE 0.8 GM PKT GTB ×3 (05:31→21:09)
[2017-11-28 06:04] LABS: ADD MAN DIFF? NO
[2017-11-28 06:13] LABS: WHITE BLOOD COUNT 12.5 10^3/ul (4.8-10.8)
[2017-11-28 06:13] LABS: BASOPHIL # 0.1 10^3/ul (0.0-0.1); BASOPHILS % 0.5 % (0.0-2.0); EOSINOPHILS # 0.3 10^3/ul (0.0-0.5); EOSINOPHILS % 2.4 % (0.0-7.0); HEMATOCRIT 41.5 % (42.0-52.0); HEMOGLOBIN 13.2 g/dl (14.0-18.0); LYMPHOCYTES # 1.6 10^3/ul (0.8-2.9); LYMPHOCYTES % 12.9 % (15.0-51.0); MEAN CORPUSCULAR HEMOGLOBIN 28.2 pg (29.0-33.0); MEAN CORPUSCULAR HGB CONC 31.8 g/dl (32.0-37.0); MEAN CORPUSCULAR VOLUME 88.7 fl (82.0-101.0); MEAN PLATELET VOLUME 11.9 fl (7.4-10.4); MONOCYTE # 1.1 10^3/ul (0.3-0.9); MONOCYTES % 8.6 % (0.0-11.0); NEUTROPHIL # 9.3 10^3/ul (1.6-7.5); NEUTROPHILS % 74.2 % (39.0-77.0); PLATELET COUNT 217 10^3/UL (140-415); RED BLOOD COUNT 4.68 10^6/ul (4.70-6.10); RED CELL DISTRIBUTION WIDTH 17.7 % (11.5-14.5)
[2017-11-28 06:51] LABS: ANION GAP 25 (8-16); BLOOD UREA NITROGEN 62 mg/dl (7-20); CALCIUM 9.3 mg/dl (8.4-10.2); CARBON DIOXIDE 21 mmol/L (21-31); CHLORIDE 93 mmol/L (97-110); CREATININE 7.61 mg/dl (0.61-1.24); GLUCOSE 93 mg/dl (70-220); MAGNESIUM 2.7 mg/dl (1.7-2.5); PHOSPHORUS 11.2 mg/dl (2.5-4.9); POTASSIUM 5.1 mmol/L (3.5-5.1); SODIUM 134 mmol/L (135-144)
[2017-11-28] MEDS: predniSONE 20 MG TAB PO (08:35)
[2017-11-28] MEDS: ARTIFICIAL TEARS 15 ML OPH BOTH EYES ×2 (08:35→21:24)
[2017-11-28] MEDS: ASPIRIN 325 MG TAB GTB (08:35)
[2017-11-28] MEDS: METOPROLOL 50 MG TAB GTB ×2 (08:35→21:00)
[2017-11-28] MEDS: LACTOBACILLUS RHAMNOSUS CAP PO ×2 (08:36→21:09)
[2017-11-28] MEDS: MULTIVITAMINS/MINERALS TAB GTB (08:36)
[2017-11-28] MEDS: HEPARIN 5,000 UNIT/0.5 ML VIAL SC ×2 (08:37→21:12)
[2017-11-28] MEDS ORDERED: LANTHANUM CARBONATE 1,000 MG CHEW PO (12:00)
[2017-11-28] MEDS: LANTHANUM 500 MG CHEW PO ×2 (15:14→17:44)
[2017-11-28] MEDS: MELATONIN 3 MG TABLET NGT (21:09)
[2017-11-28] MEDS: ATORVASTATIN 80 MG TAB GTB (21:09)
[2017-11-28] MEDS: HEPARIN 1000 UNITS/ML 10 ML INJ CATHETER (21:57)
[2017-11-29] MEDS: LANSOPRAZOLE 30 MG CAP GTB (05:38)
[2017-11-29] MEDS: SEVELAMER CARBONATE 0.8 GM PKT GTB ×3 (05:38→21:15)
[2017-11-29] MEDS: INSULIN ASPART [NOVOLOG] 3 ML PEN SC ×4 (05:45→18:00)
[2017-11-29] MEDS: LACTOBACILLUS RHAMNOSUS CAP PO ×2 (09:00→21:15)
[2017-11-29] MEDS: ARTIFICIAL TEARS 15 ML OPH BOTH EYES ×2 (09:00→21:00)
[2017-11-29] MEDS: MULTIVITAMINS/MINERALS TAB GTB (09:47)
[2017-11-29] MEDS: predniSONE 20 MG TAB PO (09:47)
[2017-11-29] MEDS: ASPIRIN 325 MG TAB GTB (09:47)
[2017-11-29] MEDS: LANTHANUM 500 MG CHEW PO ×3 (09:47→18:03)
[2017-11-29] MEDS: METOPROLOL 50 MG TAB GTB ×2 (09:48→21:16)
[2017-11-29] MEDS: HEPARIN 5,000 UNIT/0.5 ML VIAL SC ×2 (09:55→21:41)
[2017-11-29] MEDS: ATORVASTATIN 80 MG TAB GTB (21:15)
[2017-11-29] MEDS: MELATONIN 3 MG TABLET NGT (21:41)
[2017-11-30] MEDS: INSULIN ASPART [NOVOLOG] 3 ML PEN SC ×4 (06:00→17:38)
[2017-11-30] MEDS: LANSOPRAZOLE 30 MG CAP GTB (06:01)
[2017-11-30] MEDS: SEVELAMER CARBONATE 0.8 GM PKT GTB ×3 (06:02→20:24)
[2017-11-30 06:12] LABS: ADD MAN DIFF? NO
[2017-11-30 06:19] LABS: BASOPHIL # 0.1 10^3/ul (0.0-0.1); BASOPHILS % 0.4 % (0.0-2.0); EOSINOPHILS # 0.2 10^3/ul (0.0-0.5); HEMATOCRIT 39.6 % (42.0-52.0); HEMOGLOBIN 13.1 g/dl (14.0-18.0); IMMATURE GRANS #M 0.06 10^3/ul; IMMATURE GRANS % (M) 0.5 %; LYMPHOCYTES # 1.4 10^3/ul (0.8-2.9); LYMPHOCYTES % 11.6 % (15.0-51.0); MEAN CORPUSCULAR HEMOGLOBIN 29.4 pg (29.0-33.0); MEAN CORPUSCULAR HGB CONC 33.1 g/dl (32.0-37.0); MEAN PLATELET VOLUME 11.3 fl (7.4-10.4); NEUTROPHIL # 9.2 10^3/ul (1.6-7.5); NEUTROPHILS % 77.5 % (39.0-77.0); PLATELET COUNT 166 10^3/UL (140-415); RED BLOOD COUNT 4.45 10^6/ul (4.70-6.10)
[2017-11-30 06:19] LABS: WHITE BLOOD COUNT 11.9 10^3/ul (4.8-10.8)
[2017-11-30 06:34] LABS: ANION GAP 24 (8-16); BLOOD UREA NITROGEN 65 mg/dl (7-20); CARBON DIOXIDE 23 mmol/L (21-31); CHLORIDE 91 mmol/L (97-110); CREATININE 7.69 mg/dl (0.61-1.24); GLUCOSE 97 mg/dl (70-220); MAGNESIUM 2.6 mg/dl (1.7-2.5); PHOSPHORUS 9.7 mg/dl (2.5-4.9); POTASSIUM 4.6 mmol/L (3.5-5.1); SODIUM 133 mmol/L (135-144)
[2017-11-30] MEDS: predniSONE 20 MG TAB PO (08:47)
[2017-11-30] MEDS: LACTOBACILLUS RHAMNOSUS CAP PO ×2 (08:47→20:23)
[2017-11-30] MEDS: LANTHANUM 500 MG CHEW PO ×3 (08:47→17:35)
[2017-11-30] MEDS: MULTIVITAMINS/MINERALS TAB GTB (08:47)
[2017-11-30] MEDS: ASPIRIN 325 MG TAB GTB (08:47)
[2017-11-30] MEDS: ARTIFICIAL TEARS 15 ML OPH BOTH EYES ×2 (08:48→21:00)
[2017-11-30] MEDS: HEPARIN 5,000 UNIT/0.5 ML VIAL SC ×2 (08:54→20:33)
[2017-11-30] MEDS: METOPROLOL 50 MG TAB GTB (09:00)
[2017-11-30 14:06] LABS: PROCALCITONIN 1.24 ng/mL (<0.10)
[2017-11-30] MEDS: ATORVASTATIN 80 MG TAB GTB (20:23)
[2017-11-30] MEDS: MELATONIN 3 MG TABLET NGT (20:24)
[2017-11-30] MEDS: METOPROLOL 25 MG TAB GTB (20:25)
[2017-12-01] MEDS: INSULIN ASPART [NOVOLOG] 3 ML PEN SC ×4 (06:00→17:39)
[2017-12-01] MEDS: LANSOPRAZOLE 30 MG CAP GTB (06:09)
[2017-12-01] MEDS: SEVELAMER CARBONATE 0.8 GM PKT GTB ×3 (06:09→21:34)
[2017-12-01] MEDS: LACTOBACILLUS RHAMNOSUS CAP PO ×2 (09:01→21:00)
[2017-12-01] MEDS: ASPIRIN 325 MG TAB GTB (09:01)
[2017-12-01] MEDS: ARTIFICIAL TEARS 15 ML OPH BOTH EYES ×2 (09:02→21:00)
[2017-12-01] MEDS: predniSONE 20 MG TAB PO (09:02)
[2017-12-01] MEDS: MULTIVITAMINS/MINERALS TAB GTB (09:02)
[2017-12-01] MEDS: LANTHANUM 500 MG CHEW PO ×3 (09:02→17:38)
[2017-12-01] MEDS: METOPROLOL 25 MG TAB GTB ×2 (09:03→21:00)
[2017-12-01] MEDS: HEPARIN 5,000 UNIT/0.5 ML VIAL SC ×2 (09:12→21:00)
[2017-12-01 10:40] LABS: AADO2 Arterial 120.4 mmHg (7.0-24.0); Arterial Base Excess -4.8 mmol/L (-3.0-3); Arterial Blood Gas Oxygen Sat 91.8 mmHG (95.0-98.0); Arterial COHb 0.7 % (0.0-3.0); Arterial Fraction of Oxyhgb 90.8 % (93.0-99.0); Arterial HCO3 20.3 mmol/L (22.0-26.0); Arterial MetHb 0.4 % (0.0-1.5); Arterial Total Hemglobin 13.6 g/dl (12.0-18.0); MODE NASAL CANNULA; Site Right Brachial
[2017-12-01] MEDS: MELATONIN 3 MG TABLET NGT (21:00)
[2017-12-01] MEDS: ATORVASTATIN 80 MG TAB GTB (21:00)
[2017-12-02] MEDS: HEPARIN 1000 UNITS/ML 10 ML INJ CATHETER (01:41)
[2017-12-02] MEDS: INSULIN ASPART [NOVOLOG] 3 ML PEN SC ×3 (06:00→11:21)
[2017-12-02] MEDS: LANSOPRAZOLE 30 MG CAP GTB (06:00)
[2017-12-02] MEDS: SEVELAMER CARBONATE 0.8 GM PKT GTB ×3 (06:00→22:08)
[2017-12-02] MEDS: LANTHANUM 500 MG CHEW PO ×3 (08:46→17:28)
[2017-12-02] MEDS: METOPROLOL 25 MG TAB GTB ×2 (08:47→22:08)
[2017-12-02] MEDS: MULTIVITAMINS/MINERALS TAB GTB (08:47)
[2017-12-02] MEDS: predniSONE 20 MG TAB PO (08:47)
[2017-12-02] MEDS: LACTOBACILLUS RHAMNOSUS CAP PO ×2 (08:47→22:08)
[2017-12-02] MEDS: ASPIRIN 325 MG TAB GTB (08:47)
[2017-12-02] MEDS: ARTIFICIAL TEARS 15 ML OPH BOTH EYES ×2 (08:48→21:00)
[2017-12-02] MEDS: HEPARIN 5,000 UNIT/0.5 ML VIAL SC ×2 (09:02→22:15)
[2017-12-02] MEDS: ACYCLOVIR 200 MG CAP PO ×2 (16:00→21:00)
[2017-12-02] MEDS: ATORVASTATIN 80 MG TAB GTB (22:08)
[2017-12-02] MEDS: MELATONIN 3 MG TABLET NGT (22:09)
[2017-12-03] MEDS: SEVELAMER CARBONATE 0.8 GM PKT GTB ×3 (06:22→22:10)
[2017-12-03] MEDS: LANSOPRAZOLE 30 MG CAP GTB (06:22)
[2017-12-03] MEDS: Insulin NOVOLOG SS MILD Algorithm (SS with meals and bedtime) SC (07:58)
[2017-12-03] MEDS ORDERED: INSULIN ASPART [NOVOLOG] 3 ML PEN SC ×2 (08:00→09:00)
[2017-12-03] MEDS: LANTHANUM 500 MG CHEW PO ×3 (08:34→18:09)
[2017-12-03] MEDS: predniSONE 20 MG TAB PO (08:36)
[2017-12-03] MEDS: ACYCLOVIR 200 MG CAP PO ×2 (08:36→22:10)
[2017-12-03] MEDS: LACTOBACILLUS RHAMNOSUS CAP PO ×2 (08:36→22:10)
[2017-12-03] MEDS: MULTIVITAMINS/MINERALS TAB GTB (08:36)
[2017-12-03] MEDS: ARTIFICIAL TEARS 15 ML OPH BOTH EYES ×2 (08:41→22:51)
[2017-12-03] MEDS: HEPARIN 5,000 UNIT/0.5 ML VIAL SC ×2 (08:41→22:22)
[2017-12-03] MEDS: METOPROLOL 25 MG TAB GTB ×2 (08:42→22:12)
[2017-12-03] MEDS: ASPIRIN 325 MG TAB GTB (09:00)
[2017-12-03] MEDS: HEPARIN 1000 UNITS/ML 10 ML INJ CATHETER (13:57)
[2017-12-03] MEDS: MELATONIN 3 MG TABLET NGT (21:00)
[2017-12-03] MEDS: ATORVASTATIN 80 MG TAB GTB (22:10)
[2017-12-04] MEDS: SEVELAMER CARBONATE 0.8 GM PKT GTB ×3 (06:17→22:31)
[2017-12-04] MEDS: LANSOPRAZOLE 30 MG CAP GTB (06:18)
[2017-12-04] MEDS: Insulin NOVOLOG SS MILD Algorithm (SS with meals and bedtime) SC (08:00)
[2017-12-04] MEDS: ASPIRIN 325 MG TAB GTB (08:51)
[2017-12-04] MEDS: HEPARIN 5,000 UNIT/0.5 ML VIAL SC ×2 (08:52→22:46)
[2017-12-04] MEDS: MULTIVITAMINS/MINERALS TAB GTB (08:53)
[2017-12-04] MEDS: ACYCLOVIR 200 MG CAP PO (08:54)
[2017-12-04] MEDS: predniSONE 20 MG TAB PO (08:55)
[2017-12-04] MEDS: LANTHANUM 500 MG CHEW PO ×3 (08:55→17:19)
[2017-12-04] MEDS: METOPROLOL 25 MG TAB GTB ×2 (08:57→22:32)
[2017-12-04] MEDS: LACTOBACILLUS RHAMNOSUS CAP PO ×2 (08:57→22:32)
[2017-12-04] MEDS: ARTIFICIAL TEARS 15 ML OPH BOTH EYES ×2 (08:58→22:30)
[2017-12-04] MEDS: MELATONIN 3 MG TABLET NGT (21:00)
[2017-12-04] MEDS: ATORVASTATIN 80 MG TAB GTB (22:32)
[2017-12-05 06:19] LABS: ADD MAN DIFF? NO
[2017-12-05 06:37] LABS: BASOPHILS % 0.6 % (0.0-2.0); EOSINOPHILS # 0.2 10^3/ul (0.0-0.5); EOSINOPHILS % 2.8 % (0.0-7.0); HEMATOCRIT 37.4 % (42.0-52.0); HEMOGLOBIN 11.9 g/dl (14.0-18.0); LYMPHOCYTES # 1.3 10^3/ul (0.8-2.9); LYMPHOCYTES % 17.8 % (15.0-51.0); MEAN CORPUSCULAR HEMOGLOBIN 28.5 pg (29.0-33.0); MEAN CORPUSCULAR HGB CONC 31.8 g/dl (32.0-37.0); MEAN CORPUSCULAR VOLUME 89.7 fl (82.0-101.0); MONOCYTE # 0.6 10^3/ul (0.3-0.9); MONOCYTES % 8.3 % (0.0-11.0); NEUTROPHILS % 70.2 % (39.0-77.0); PLATELET COUNT 155 10^3/UL (140-415); RED BLOOD COUNT 4.17 10^6/ul (4.70-6.10); RED CELL DISTRIBUTION WIDTH 17.1 % (11.5-14.5)
[2017-12-05 06:37] LABS: WHITE BLOOD COUNT 7.2 10^3/ul (4.8-10.8)
[2017-12-05] MEDS: LANSOPRAZOLE 30 MG CAP GTB (06:54)
[2017-12-05] MEDS: SEVELAMER CARBONATE 0.8 GM PKT GTB ×3 (06:54→20:26)
[2017-12-05 07:15] LABS: ANION GAP 18 (8-16); BLOOD UREA NITROGEN 64 mg/dl (7-20); CARBON DIOXIDE 24 mmol/L (21-31); CHLORIDE 96 mmol/L (97-110); CREATININE 6.91 mg/dl (0.61-1.24); GLUCOSE 91 mg/dl (70-220); MAGNESIUM 2.6 mg/dl (1.7-2.5); PHOSPHORUS 4.7 mg/dl (2.5-4.9); POTASSIUM 4.1 mmol/L (3.5-5.1); SODIUM 134 mmol/L (135-144)
[2017-12-05] MEDS: Insulin NOVOLOG SS MILD Algorithm (SS with meals and bedtime) SC (08:00)
[2017-12-05] MEDS: LACTOBACILLUS RHAMNOSUS CAP PO ×2 (08:30→20:25)
[2017-12-05] MEDS: ASPIRIN 325 MG TAB GTB (08:30)
[2017-12-05] MEDS: LANTHANUM 500 MG CHEW PO ×3 (08:30→18:50)
[2017-12-05] MEDS: MULTIVITAMINS/MINERALS TAB GTB (08:30)
[2017-12-05] MEDS: predniSONE 20 MG TAB PO (08:30)
[2017-12-05] MEDS: METOPROLOL 25 MG TAB GTB ×2 (08:41→20:26)
[2017-12-05] MEDS: HEPARIN 5,000 UNIT/0.5 ML VIAL SC ×2 (08:41→20:28)
[2017-12-05] MEDS: ARTIFICIAL TEARS 15 ML OPH BOTH EYES ×2 (08:42→20:24)
[2017-12-05] MEDS: HEPARIN 1000 UNITS/ML 10 ML INJ CATHETER (19:48)
[2017-12-05] MEDS: ATORVASTATIN 80 MG TAB GTB (20:25)
[2017-12-05] MEDS: MELATONIN 3 MG TABLET NGT (20:25)
[2017-12-06] MEDS: SEVELAMER CARBONATE 0.8 GM PKT GTB ×3 (06:16→20:52)
[2017-12-06] MEDS: LANSOPRAZOLE 30 MG CAP GTB (06:16)
[2017-12-06] MEDS: Insulin NOVOLOG SS MILD Algorithm (SS with meals and bedtime) SC (07:48)
[2017-12-06] MEDS: MULTIVITAMINS/MINERALS TAB GTB (08:59)
[2017-12-06] MEDS: LACTOBACILLUS RHAMNOSUS CAP PO ×2 (08:59→20:51)
[2017-12-06] MEDS: LANTHANUM 500 MG CHEW PO ×3 (08:59→17:33)
[2017-12-06] MEDS: METOPROLOL 25 MG TAB GTB ×2 (08:59→20:52)
[2017-12-06] MEDS: predniSONE 20 MG TAB PO (08:59)
[2017-12-06] MEDS: ARTIFICIAL TEARS 15 ML OPH BOTH EYES ×2 (09:00→20:53)
[2017-12-06] MEDS: HEPARIN 5,000 UNIT/0.5 ML VIAL SC ×2 (09:01→20:54)
[2017-12-06] MEDS: ASPIRIN 325 MG TAB GTB (09:06)
[2017-12-06] MEDS: MELATONIN 3 MG TABLET NGT (20:51)
[2017-12-06] MEDS: ATORVASTATIN 80 MG TAB GTB (20:51)
[2017-12-07] MEDS: SEVELAMER CARBONATE 0.8 GM PKT GTB ×3 (06:06→20:26)
[2017-12-07] MEDS: LANSOPRAZOLE 30 MG CAP GTB (06:06)
[2017-12-07] MEDS: Insulin NOVOLOG SS MILD Algorithm (SS with meals and bedtime) SC (08:00)
[2017-12-07] MEDS: LACTOBACILLUS RHAMNOSUS CAP PO ×2 (08:15→20:25)
[2017-12-07] MEDS: MULTIVITAMINS/MINERALS TAB GTB (08:15)
[2017-12-07] MEDS: predniSONE 20 MG TAB PO (08:16)
[2017-12-07] MEDS: LANTHANUM 500 MG CHEW PO ×3 (08:16→17:13)
[2017-12-07] MEDS: ASPIRIN 325 MG TAB GTB (08:16)
[2017-12-07] MEDS: ARTIFICIAL TEARS 15 ML OPH BOTH EYES ×2 (08:16→21:00)
[2017-12-07] MEDS: HEPARIN 5,000 UNIT/0.5 ML VIAL SC ×2 (08:16→20:28)
[2017-12-07] MEDS: METOPROLOL 25 MG TAB GTB ×2 (08:18→20:26)
[2017-12-07] MEDS: HEPARIN 1000 UNITS/ML 10 ML INJ CATHETER (14:12)
[2017-12-07] MEDS: ATORVASTATIN 80 MG TAB GTB (20:25)
[2017-12-07] MEDS: MELATONIN 3 MG TABLET NGT (20:26)
[2017-12-08] MEDS: LANSOPRAZOLE 30 MG CAP GTB (05:50)
[2017-12-08] MEDS: SEVELAMER CARBONATE 0.8 GM PKT GTB ×2 (05:51→14:00)
[2017-12-08 06:09] LABS: ADD MAN DIFF? NO
[2017-12-08 06:16] LABS: BASOPHIL # 0.1 10^3/ul (0.0-0.1); BASOPHILS % 0.7 % (0.0-2.0); EOSINOPHILS # 0.2 10^3/ul (0.0-0.5); EOSINOPHILS % 2.3 % (0.0-7.0); HEMATOCRIT 41.5 % (42.0-52.0); LYMPHOCYTES # 1.4 10^3/ul (0.8-2.9); LYMPHOCYTES % 19.9 % (15.0-51.0); MEAN CORPUSCULAR HEMOGLOBIN 28.7 pg (29.0-33.0); MEAN CORPUSCULAR HGB CONC 31.3 g/dl (32.0-37.0); MEAN CORPUSCULAR VOLUME 91.6 fl (82.0-101.0); MEAN PLATELET VOLUME 10.5 fl (7.4-10.4); MONOCYTE # 0.6 10^3/ul (0.3-0.9); NEUTROPHIL # 4.8 10^3/ul (1.6-7.5); NEUTROPHILS % 68.7 % (39.0-77.0); PLATELET COUNT 182 10^3/UL (140-415); RED BLOOD COUNT 4.53 10^6/ul (4.70-6.10); RED CELL DISTRIBUTION WIDTH 17.4 % (11.5-14.5)
[2017-12-08 06:46] LABS: ALANINE AMINOTRANSFERASE 75 IU/L (13-69); ALBUMIN 3.8 g/dl (3.3-4.9); ALBUMIN/GLOBULIN RATIO 1.26; ALKALINE PHOSPHATASE 164 IU/L (42-121); ANION GAP 19 (8-16); ASPARTATE AMINO TRANSFERASE 51 IU/L (15-46); BILIRUBIN,INDIRECT 0.2 mg/dl (0-1.1); BILIRUBIN,TOTAL 0.2 mg/dl (0.2-1.3); BLOOD UREA NITROGEN 48 mg/dl (7-20); CALCIUM 9.8 mg/dl (8.4-10.2); CARBON DIOXIDE 27 mmol/L (21-31); CHLORIDE 98 mmol/L (97-110); CREATININE 5.89 mg/dl (0.61-1.24); GLUCOSE 99 mg/dl (70-220); SODIUM 140 mmol/L (135-144); TOTAL PROTEIN 6.8 g/dl (6.1-8.1)
[2017-12-08 06:51] LABS: PHOSPHORUS 3.9 mg/dl (2.5-4.9)
[2017-12-08 06:51] LABS: MAGNESIUM 2.4 mg/dl (1.7-2.5)
[2017-12-08] MEDS: Insulin NOVOLOG SS MILD Algorithm (SS with meals and bedtime) SC (07:54)
[2017-12-08] MEDS: ARTIFICIAL TEARS 15 ML OPH BOTH EYES (07:54)
[2017-12-08] MEDS: LACTOBACILLUS RHAMNOSUS CAP PO (08:26)
[2017-12-08] MEDS: predniSONE 20 MG TAB PO (08:26)
[2017-12-08] MEDS: MULTIVITAMINS/MINERALS TAB GTB (08:26)
[2017-12-08] MEDS: ASPIRIN 325 MG TAB GTB (08:26)
[2017-12-08] MEDS: METOPROLOL 25 MG TAB GTB (08:26)
[2017-12-08] MEDS: LANTHANUM 500 MG CHEW PO ×2 (08:26→11:19)
[2017-12-08] MEDS: HEPARIN 5,000 UNIT/0.5 ML VIAL SC (08:27)
== END 2017-12-08 15:22 | disposition short-term general hospital (02) | DRG 870 ==
LOC: ICU 20:05 → TEL 11-15 11:40 → ICU 11-19 02:10 → 6WM 11-23 02:36
PROC: 5A1955Z Respiratory Ventilation, Greater than 96 Consecutive Hours (ICD-10-PCS; principal; 2017-11-11)
PROC: 5A1D70Z Performance of Urinary Filtration, Intermittent, Less than 6 Hours Per Day (ICD-10-PCS; 2017-11-12)
PROC: 0B21XFZ Change Tracheostomy Device in Trachea, External Approach (ICD-10-PCS; 2017-11-20)
DX: A41.9 Sepsis, unspecified organism (principal); R65.21 Severe sepsis with septic shock; J69.0 Pneumonitis due to inhalation of food and vomit; I50.33 Acute on chronic diastolic (congestive) heart failure; G93.41 Metabolic encephalopathy; J96.22 Acute and chronic respiratory failure with hypercapnia; J96.21 Acute and chronic respiratory failure with hypoxia; J15.8 Pneumonia due to other specified bacteria; N18.6 End stage renal disease; I13.0 Hypertensive heart and chronic kidney disease with heart failure and stage 1 through stage 4 chronic kidney disease, or unspecified chronic kidney disease; E87.0 Hyperosmolality and hypernatremia; N17.9 Acute kidney failure, unspecified; E87.2 Acidosis; T85.628A Displacement of other specified internal prosthetic devices, implants and grafts, initial encounter; T79.7XXA Traumatic subcutaneous emphysema, initial encounter; I13.2 Hypertensive heart and chronic kidney disease with heart failure and with stage 5 chronic kidney disease, or end stage renal disease; Z68.42 Body mass index [BMI] 45.0-49.9, adult; Z99.11 Dependence on respirator [ventilator] status; E66.01 Morbid (severe) obesity due to excess calories; E87.5 Hyperkalemia; E83.41 Hypermagnesemia; G47.33 Obstructive sleep apnea (adult) (pediatric); B37.9 Candidiasis, unspecified; D64.9 Anemia, unspecified; E11.65 Type 2 diabetes mellitus with hyperglycemia; E87.6 Hypokalemia; E83.9 Disorder of mineral metabolism, unspecified; R07.9 Chest pain, unspecified; B00.1 Herpesviral vesicular dermatitis
CPT/HCPCS: 36600; 70360; 71045; 76536; 80048; 80053; 80076; 80202; 82247; 82248; 82270; 82550; 82553; 82607; 82728; 82746; 82803; 82962; 83036; 83605; 83735; 84100; 84145; 84484; 85025; 85045; 86704; 86706; 86709; 86803; 87040; 87070; 87075; 87081; 87340; 89220; 90935; 92526; 92610; 93005; 94002; 94003; 94640; 94664; 97110; 97162; 97164; 97530

== ENCOUNTER 2017-12-08 15:33 | Inpatient (IN) | payer BC ==
[2017-12-08] MEDS ORDERED: PENDING SANTYL ORDER FOR WOUND CARE XX (16:30)
[2017-12-08] MEDS ORDERED: HYDROmorphONE 2 MG TAB PO (18:30)
[2017-12-08] MEDS ORDERED: ARTIFICIAL TEARS 15 ML OPH BOTH EYES (18:30)
[2017-12-08] MEDS ORDERED: ACETAMINOPHEN 325 MG TAB PO (18:30)
[2017-12-08] MEDS ORDERED: ONDANSETRON 4 MG INJ IV (18:30)
[2017-12-08] MEDS ORDERED: LORAZEPAM 2 MG INJ IV (18:30)
[2017-12-08] MEDS ORDERED: GLUCAGON 1 MG INJ IM (19:00)
[2017-12-08] MEDS ORDERED: GLUCOSE GEL 15 GRAM TUBE BUCCAL (19:00)
[2017-12-08] MEDS ORDERED: GLUCOSE GEL 15 GRAM TUBE PO ×2 (19:00)
[2017-12-08] MEDS ORDERED: IPRATROPIUM (NEB) 0.5 MG/2.5 ML AMP HHN (19:00)
[2017-12-08] MEDS ORDERED: DEXTROSE 50% 50 ML SYRINGE IV ×2 (19:00)
[2017-12-08] MEDS: LEVALBUTEROL (NEB) 0.63 MG/3 ML AMP HHN (19:19)
[2017-12-08] MEDS ORDERED: LACTULOSE 30ML CUP PO (20:00)
[2017-12-08] MEDS ORDERED: BISACODYL 10 MG SUPP PR (20:00)
[2017-12-08] MEDS: SENNA TAB PO (21:00)
[2017-12-08] MEDS: IPRATROPIUM (HFA) 12.9 GM INHALER INH (21:00)
[2017-12-08] MEDS ORDERED: HYPROMELLOSE 0.5% 15 ML OPH BOTH EYES (21:00)
[2017-12-08] MEDS: ATORVASTATIN 80 MG TAB PO (21:16)
[2017-12-08] MEDS: LACTOBACILLUS RHAMNOSUS CAP PO (21:17)
[2017-12-08] MEDS: METOPROLOL 25 MG TAB PO (21:19)
[2017-12-08] MEDS: HEPARIN 5,000 UNIT/0.5 ML VIAL IV (21:23)
[2017-12-08] MEDS: SEVELAMER CARBONATE 0.8 GM PKT PO (21:25)
[2017-12-08] MEDS ORDERED: SEVELAMER CARBONATE 0.8 GM PKT GTB (22:00)
[2017-12-09] MEDS: IPRATROPIUM (HFA) 12.9 GM INHALER INH ×7 (01:30→21:02)
[2017-12-09] MEDS: LEVALBUTEROL (NEB) 0.63 MG/3 ML AMP HHN ×4 (02:00→20:00)
[2017-12-09] MEDS ORDERED: LANSOPRAZOLE 30 MG CAP GTB (06:00)
[2017-12-09] MEDS: LANSOPRAZOLE 30 MG CAP PO (06:42)
[2017-12-09] MEDS: SEVELAMER CARBONATE 0.8 GM PKT PO ×3 (06:43→21:25)
[2017-12-09] MEDS: Insulin NOVOLOG SS MILD Algorithm (SS with meals and bedtime) SC (07:35)
[2017-12-09] MEDS: LANTHANUM 500 MG CHEW PO ×3 (08:16→17:54)
[2017-12-09 08:27] LABS: ADD MAN DIFF? NO
[2017-12-09 08:30] LABS: WHITE BLOOD COUNT 7.1 10^3/ul (4.8-10.8)
[2017-12-09 08:30] LABS: BASOPHIL # 0.1 10^3/ul (0.0-0.1); BASOPHILS % 0.7 % (0.0-2.0); EOSINOPHILS # 0.1 10^3/ul (0.0-0.5); EOSINOPHILS % 1.6 % (0.0-7.0); HEMATOCRIT 37.7 % (42.0-52.0); HEMOGLOBIN 12.1 g/dl (14.0-18.0); LYMPHOCYTES # 1.5 10^3/ul (0.8-2.9); LYMPHOCYTES % 20.7 % (15.0-51.0); MEAN CORPUSCULAR HEMOGLOBIN 29.2 pg (29.0-33.0); MEAN CORPUSCULAR HGB CONC 32.1 g/dl (32.0-37.0); MEAN CORPUSCULAR VOLUME 90.8 fl (82.0-101.0); MEAN PLATELET VOLUME 10.1 fl (7.4-10.4); MONOCYTE # 0.6 10^3/ul (0.3-0.9); MONOCYTES % 8.8 % (0.0-11.0); NEUTROPHIL # 4.8 10^3/ul (1.6-7.5); NEUTROPHILS % 67.8 % (39.0-77.0); PLATELET COUNT 183 10^3/UL (140-415); RED BLOOD COUNT 4.15 10^6/ul (4.70-6.10); RED CELL DISTRIBUTION WIDTH 17.4 % (11.5-14.5)
[2017-12-09 08:58] LABS: ALANINE AMINOTRANSFERASE 70 IU/L (13-69); ALBUMIN 3.5 g/dl (3.3-4.9); ALBUMIN/GLOBULIN RATIO 1.16; ALKALINE PHOSPHATASE 152 IU/L (42-121); ANION GAP 17 (8-16); ASPARTATE AMINO TRANSFERASE 43 IU/L (15-46); BILIRUBIN,INDIRECT 0.1 mg/dl (0-1.1); BILIRUBIN,TOTAL 0.1 mg/dl (0.2-1.3); BLOOD UREA NITROGEN 75 mg/dl (7-20); CALCIUM 9.4 mg/dl (8.4-10.2); CARBON DIOXIDE 27 mmol/L (21-31); CHLORIDE 97 mmol/L (97-110); GLUCOSE 82 mg/dl (70-220); POTASSIUM 4.1 mmol/L (3.5-5.1); SODIUM 137 mmol/L (135-144); TOTAL PROTEIN 6.5 g/dl (6.1-8.1)
[2017-12-09] MEDS: METOPROLOL 25 MG TAB PO ×2 (09:00→20:57)
[2017-12-09] MEDS: MULTIVITAMINS/MINERALS TAB PO (09:34)
[2017-12-09] MEDS: LACTOBACILLUS RHAMNOSUS CAP PO ×2 (09:34→20:57)
[2017-12-09] MEDS: predniSONE 20 MG TAB PO (09:36)
[2017-12-09] MEDS: SENNA TAB PO (09:37)
[2017-12-09] MEDS: ASPIRIN (EC) 325 MG TAB PO (09:37)
[2017-12-09] MEDS: HEPARIN 5,000 UNIT/0.5 ML VIAL IV ×2 (09:41→21:18)
[2017-12-09] MEDS: EPOETIN 10000 UNITS/1 ML INJ (ESRD) IV (17:00)
[2017-12-09] MEDS: ATORVASTATIN 80 MG TAB PO (20:57)
[2017-12-09] MEDS: ALTEPLASE (CATHFLO) 2 MG INJ CATHETER (21:26)
[2017-12-10] MEDS: ALTEPLASE (CATHFLO) 2 MG INJ CATHETER (00:06)
[2017-12-10] MEDS: IPRATROPIUM (HFA) 12.9 GM INHALER INH ×6 (01:00→22:00)
[2017-12-10] MEDS: LEVALBUTEROL (NEB) 0.63 MG/3 ML AMP HHN ×4 (01:29→20:00)
[2017-12-10] MEDS: LANSOPRAZOLE 30 MG CAP PO (06:08)
[2017-12-10] MEDS: SEVELAMER CARBONATE 0.8 GM PKT PO ×3 (06:12→22:00)
[2017-12-10] MEDS: Insulin NOVOLOG SS MILD Algorithm (SS with meals and bedtime) SC (07:35)
[2017-12-10] MEDS: LACTOBACILLUS RHAMNOSUS CAP PO ×2 (08:27→23:38)
[2017-12-10] MEDS: SENNA TAB PO (08:28)
[2017-12-10] MEDS: MULTIVITAMINS/MINERALS TAB PO (08:28)
[2017-12-10] MEDS: LANTHANUM 500 MG CHEW PO ×3 (08:28→17:22)
[2017-12-10] MEDS: ASPIRIN (EC) 325 MG TAB PO (08:28)
[2017-12-10] MEDS: predniSONE 20 MG TAB PO (08:28)
[2017-12-10] MEDS: METOPROLOL 25 MG TAB PO ×2 (08:30→22:00)
[2017-12-10] MEDS: HEPARIN 5,000 UNIT/0.5 ML VIAL SC ×2 (08:36→23:38)
[2017-12-10 09:30] LABS: ADD UMIC YES; UR ASCORBIC ACID NEGATIVE (NEGATIVE); UR BILIRUBIN (Dip) NEGATIVE (NEGATIVE); UR BLOOD (Dip) NEGATIVE (NEGATIVE); UR CLARITY CLOUDY (CLEAR); UR COLOR AMBER (YELLOW); UR GLUCOSE (Dip) NEGATIVE (NEGATIVE); UR KETONES (Dip) NEGATIVE (NEGATIVE); UR LEUKOCYTE ESTERASE (Dip) TRACE Leu/ul (NEGATIVE); UR NITRITE (Dip) NEGATIVE (NEGATIVE); UR RBC 5 /HPF (0-5); UR SQUAMOUS EPITHELIAL CELL MANY /HPF (FEW); UR TOTAL PROTEIN (Dip) NEGATIVE (NEGATIVE); UR UROBILINOGEN (Dip) NEGATIVE (NEGATIVE); UR WBC 20 /HPF (0-5)
[2017-12-10] MEDS: ATORVASTATIN 80 MG TAB PO (23:38)
[2017-12-11] MEDS: HEPARIN 1000 UNITS/ML 10 ML INJ CATHETER (00:41)
[2017-12-11] MEDS: IPRATROPIUM (HFA) 12.9 GM INHALER INH ×2 (01:00→05:00)
[2017-12-11] MEDS: LEVALBUTEROL (NEB) 0.63 MG/3 ML AMP HHN (01:27)
[2017-12-11] MEDS: LANSOPRAZOLE 30 MG CAP PO (06:31)
[2017-12-11 06:32] LABS: ADD MAN DIFF? NO
[2017-12-11] MEDS: SEVELAMER CARBONATE 0.8 GM PKT PO ×3 (06:32→17:27)
[2017-12-11 06:42] LABS: BASOPHILS % 0.5 % (0.0-2.0); EOSINOPHILS # 0.1 10^3/ul (0.0-0.5); EOSINOPHILS % 1.6 % (0.0-7.0); HEMATOCRIT 38.5 % (42.0-52.0); HEMOGLOBIN 12.4 g/dl (14.0-18.0); LYMPHOCYTES # 1.3 10^3/ul (0.8-2.9); LYMPHOCYTES % 23.5 % (15.0-51.0); MEAN CORPUSCULAR HEMOGLOBIN 29.3 pg (29.0-33.0); MEAN CORPUSCULAR HGB CONC 32.2 g/dl (32.0-37.0); MEAN PLATELET VOLUME 9.7 fl (7.4-10.4); MONOCYTE # 0.5 10^3/ul (0.3-0.9); MONOCYTES % 9.8 % (0.0-11.0); NEUTROPHIL # 3.5 10^3/ul (1.6-7.5); NEUTROPHILS % 64.1 % (39.0-77.0); PLATELET COUNT 206 10^3/UL (140-415); RED BLOOD COUNT 4.23 10^6/ul (4.70-6.10); RED CELL DISTRIBUTION WIDTH 17.2 % (11.5-14.5)
[2017-12-11 06:42] LABS: WHITE BLOOD COUNT 5.5 10^3/ul (4.8-10.8)
[2017-12-11 06:58] LABS: ANION GAP 12 (8-16); BLOOD UREA NITROGEN 42 mg/dl (7-20); CALCIUM 8.6 mg/dl (8.4-10.2); CARBON DIOXIDE 29 mmol/L (21-31); CHLORIDE 101 mmol/L (97-110); CREATININE 4.92 mg/dl (0.61-1.24); GLUCOSE 87 mg/dl (70-220); MAGNESIUM 2.2 mg/dl (1.7-2.5); PHOSPHORUS 3.5 mg/dl (2.5-4.9); POTASSIUM 3.8 mmol/L (3.5-5.1); SODIUM 138 mmol/L (135-144)
[2017-12-11] MEDS ORDERED: LEVALBUTEROL (NEB) 0.63 MG/3 ML AMP HHN (07:00)
[2017-12-11] MEDS ORDERED: IPRATROPIUM (NEB) 0.5 MG/2.5 ML AMP INH (07:30)
[2017-12-11] MEDS: Insulin NOVOLOG SS MILD Algorithm (SS with meals and bedtime) SC (07:35)
[2017-12-11] MEDS: HYDROCODONE/APAP (5/325) TAB PO (08:33)
[2017-12-11] MEDS: LACTOBACILLUS RHAMNOSUS CAP PO ×2 (08:34→21:26)
[2017-12-11] MEDS: predniSONE 5 MG TAB PO (08:34)
[2017-12-11] MEDS: LANTHANUM 500 MG CHEW PO ×3 (08:34→17:26)
[2017-12-11] MEDS: MULTIVITAMINS/MINERALS TAB PO (08:34)
[2017-12-11] MEDS: ASPIRIN (EC) 325 MG TAB PO (08:34)
[2017-12-11] MEDS: SENNA TAB PO (08:34)
[2017-12-11] MEDS: HEPARIN 5,000 UNIT/0.5 ML VIAL SC ×2 (08:41→21:26)
[2017-12-11] MEDS: METOPROLOL 25 MG TAB PO ×2 (09:00→21:27)
[2017-12-11] MEDS: ATORVASTATIN 80 MG TAB PO (21:26)
[2017-12-12] MEDS: LANSOPRAZOLE 30 MG CAP PO (06:27)
[2017-12-12] MEDS: Insulin NOVOLOG SS MILD Algorithm (SS with meals and bedtime) SC (07:35)
[2017-12-12] MEDS: SEVELAMER CARBONATE 0.8 GM PKT PO ×3 (07:47→18:11)
[2017-12-12] MEDS: LANTHANUM 500 MG CHEW PO ×3 (07:48→17:35)
[2017-12-12] MEDS: METOPROLOL 25 MG TAB PO (09:00)
[2017-12-12] MEDS: MULTIVITAMINS/MINERALS TAB PO (09:48)
[2017-12-12] MEDS: predniSONE 5 MG TAB PO (09:48)
[2017-12-12] MEDS: LACTOBACILLUS RHAMNOSUS CAP PO ×2 (09:48→20:08)
[2017-12-12] MEDS: ASPIRIN (EC) 325 MG TAB PO (09:48)
[2017-12-12] MEDS: SENNA TAB PO (09:48)
[2017-12-12] MEDS: HEPARIN 5,000 UNIT/0.5 ML VIAL SC ×2 (09:53→20:20)
[2017-12-12] MEDS: EUCERIN 113 GM CR TOP ×2 (15:33→20:21)
[2017-12-12] MEDS: ATORVASTATIN 80 MG TAB PO (20:08)
[2017-12-13] MEDS: HEPARIN 1000 UNITS/ML 10 ML INJ CATHETER (00:09)
[2017-12-13] MEDS: METOPROLOL 25 MG TAB PO ×3 (00:41→20:49)
[2017-12-13] MEDS: LANSOPRAZOLE 30 MG CAP PO (06:10)
[2017-12-13] MEDS: Insulin NOVOLOG SS MILD Algorithm (SS with meals and bedtime) SC (07:35)
[2017-12-13] MEDS: LANTHANUM 500 MG CHEW PO ×3 (08:41→18:53)
[2017-12-13] MEDS: SEVELAMER CARBONATE 0.8 GM PKT PO ×3 (08:41→18:53)
[2017-12-13] MEDS: SENNA TAB PO (08:42)
[2017-12-13] MEDS: predniSONE 5 MG TAB PO (08:42)
[2017-12-13] MEDS: LACTOBACILLUS RHAMNOSUS CAP PO ×2 (08:43→20:48)
[2017-12-13] MEDS: ASPIRIN (EC) 325 MG TAB PO (08:43)
[2017-12-13] MEDS: MULTIVITAMINS/MINERALS TAB PO (08:43)
[2017-12-13] MEDS: HEPARIN 5,000 UNIT/0.5 ML VIAL SC ×2 (08:45→20:50)
[2017-12-13] MEDS: EUCERIN 113 GM CR TOP ×2 (08:51→20:50)
[2017-12-13 10:37] LABS: ANION GAP 14 (8-16); BLOOD UREA NITROGEN 33 mg/dl (7-20); CALCIUM 8.7 mg/dl (8.4-10.2); CARBON DIOXIDE 27 mmol/L (21-31); CHLORIDE 99 mmol/L (97-110); CREATININE 4.72 mg/dl (0.61-1.24); GLUCOSE 100 mg/dl (70-220); POTASSIUM 3.5 mmol/L (3.5-5.1); SODIUM 136 mmol/L (135-144)
[2017-12-13] MEDS ORDERED: AMIKACIN IV PER PHARMACY XX (12:00)
[2017-12-13] MEDS: ALTEPLASE (CATHFLO) 2 MG INJ CATHETER (14:30)
[2017-12-13] MEDS: AMIKACIN IVPB (15:25)
[2017-12-13] MEDS: SOD CHLORIDE 0.9% IVPB (15:25)
[2017-12-13] MEDS: ATORVASTATIN 80 MG TAB PO (20:48)
[2017-12-14] MEDS: LANSOPRAZOLE 30 MG CAP PO (06:20)
[2017-12-14 06:30] LABS: ADD MAN DIFF? NO
[2017-12-14 06:37] LABS: WHITE BLOOD COUNT 6.2 10^3/ul (4.8-10.8)
[2017-12-14 06:37] LABS: BASOPHILS % 0.6 % (0.0-2.0); EOSINOPHILS # 0.1 10^3/ul (0.0-0.5); EOSINOPHILS % 2.1 % (0.0-7.0); HEMATOCRIT 35.8 % (42.0-52.0); HEMOGLOBIN 11.5 g/dl (14.0-18.0); LYMPHOCYTES # 1.5 10^3/ul (0.8-2.9); LYMPHOCYTES % 24.4 % (15.0-51.0); MEAN CORPUSCULAR HEMOGLOBIN 29.6 pg (29.0-33.0); MEAN CORPUSCULAR HGB CONC 32.1 g/dl (32.0-37.0); MEAN CORPUSCULAR VOLUME 92.3 fl (82.0-101.0); MEAN PLATELET VOLUME 9.7 fl (7.4-10.4); MONOCYTE # 0.7 10^3/ul (0.3-0.9); MONOCYTES % 10.4 % (0.0-11.0); NEUTROPHIL # 3.9 10^3/ul (1.6-7.5); NEUTROPHILS % 61.9 % (39.0-77.0); PLATELET COUNT 208 10^3/UL (140-415); RED BLOOD COUNT 3.88 10^6/ul (4.70-6.10); RED CELL DISTRIBUTION WIDTH 17.6 % (11.5-14.5)
[2017-12-14 06:53] LABS: ANION GAP 13 (8-16); BLOOD UREA NITROGEN 45 mg/dl (7-20); CALCIUM 8.7 mg/dl (8.4-10.2); CARBON DIOXIDE 28 mmol/L (21-31); CHLORIDE 100 mmol/L (97-110); CREATININE 6.25 mg/dl (0.61-1.24); GLUCOSE 90 mg/dl (70-220); MAGNESIUM 2.3 mg/dl (1.7-2.5); PHOSPHORUS 3.8 mg/dl (2.5-4.9); POTASSIUM 3.7 mmol/L (3.5-5.1); SODIUM 137 mmol/L (135-144)
[2017-12-14] MEDS: Insulin NOVOLOG SS MILD Algorithm (SS with meals and bedtime) SC (07:35)
[2017-12-14] MEDS: LANTHANUM 500 MG CHEW PO ×3 (08:16→17:42)
[2017-12-14] MEDS: SEVELAMER CARBONATE 0.8 GM PKT PO ×3 (08:16→17:41)
[2017-12-14] MEDS: SENNA TAB PO (08:49)
[2017-12-14] MEDS: predniSONE 5 MG TAB PO (08:49)
[2017-12-14] MEDS: ASPIRIN (EC) 325 MG TAB PO (08:49)
[2017-12-14] MEDS: METOPROLOL 25 MG TAB PO ×2 (08:50→20:57)
[2017-12-14] MEDS: MULTIVITAMINS/MINERALS TAB PO (08:50)
[2017-12-14] MEDS: HYDROCODONE/APAP (5/325) TAB PO (08:51)
[2017-12-14] MEDS: EUCERIN 113 GM CR TOP ×2 (08:51→20:59)
[2017-12-14] MEDS: HEPARIN 5,000 UNIT/0.5 ML VIAL SC ×2 (08:54→21:04)
[2017-12-14] MEDS: LACTOBACILLUS RHAMNOSUS CAP PO ×2 (12:02→20:54)
[2017-12-14] MEDS: ATORVASTATIN 80 MG TAB PO (20:54)
[2017-12-15] MEDS: LANSOPRAZOLE 30 MG CAP PO (06:37)
[2017-12-15] MEDS: Insulin NOVOLOG SS MILD Algorithm (SS with meals and bedtime) SC (07:35)
[2017-12-15] MEDS: SEVELAMER CARBONATE 0.8 GM PKT PO ×3 (07:39→17:31)
[2017-12-15] MEDS: LANTHANUM 500 MG CHEW PO ×3 (07:39→17:34)
[2017-12-15] MEDS: METOPROLOL 25 MG TAB PO ×2 (09:00→21:00)
[2017-12-15] MEDS: MULTIVITAMINS/MINERALS TAB PO (09:05)
[2017-12-15] MEDS: SENNA TAB PO (09:05)
[2017-12-15] MEDS: LACTOBACILLUS RHAMNOSUS CAP PO ×2 (09:05→20:49)
[2017-12-15] MEDS: predniSONE 5 MG TAB PO (09:06)
[2017-12-15] MEDS: HEPARIN 5,000 UNIT/0.5 ML VIAL SC ×2 (09:08→20:55)
[2017-12-15] MEDS: ASPIRIN (EC) 325 MG TAB PO (09:10)
[2017-12-15] MEDS: EUCERIN 113 GM CR TOP ×2 (09:16→21:00)
[2017-12-15] MEDS: ATORVASTATIN 80 MG TAB PO (20:49)
[2017-12-16] MEDS: HEPARIN 1000 UNITS/ML 10 ML INJ CATHETER (01:10)
[2017-12-16] MEDS: AMIKACIN 500 MG in SOD CHLORIDE 0.9% 100 ML IVPB (01:16)
[2017-12-16] MEDS: LANSOPRAZOLE 30 MG CAP PO (06:27)
[2017-12-16] MEDS: Insulin NOVOLOG SS MILD Algorithm (SS with meals and bedtime) SC (07:35)
[2017-12-16] MEDS: LANTHANUM 500 MG CHEW PO ×4 (07:35→17:50)
[2017-12-16] MEDS: METOPROLOL 25 MG TAB PO ×2 (08:26→20:28)
[2017-12-16] MEDS: SENNA TAB PO (08:36)
[2017-12-16] MEDS: MULTIVITAMINS/MINERALS TAB PO (08:36)
[2017-12-16] MEDS: LACTOBACILLUS RHAMNOSUS CAP PO ×2 (08:37→20:28)
[2017-12-16] MEDS: SEVELAMER CARBONATE 0.8 GM PKT PO ×3 (08:37→17:50)
[2017-12-16] MEDS: ASPIRIN (EC) 325 MG TAB PO (08:37)
[2017-12-16] MEDS: predniSONE 10 MG TAB PO (08:38)
[2017-12-16] MEDS: HEPARIN 5,000 UNIT/0.5 ML VIAL SC ×2 (08:41→20:54)
[2017-12-16] MEDS: EUCERIN 113 GM CR TOP ×2 (08:42→20:28)
[2017-12-16] MEDS: ATORVASTATIN 80 MG TAB PO (20:27)
[2017-12-17] MEDS: LANSOPRAZOLE 30 MG CAP PO (06:10)
[2017-12-17] MEDS: Insulin NOVOLOG SS MILD Algorithm (SS with meals and bedtime) SC (07:35)
[2017-12-17] MEDS: EUCERIN 113 GM CR TOP ×2 (08:43→21:04)
[2017-12-17] MEDS: MULTIVITAMINS/MINERALS TAB PO (08:43)
[2017-12-17] MEDS: LANTHANUM 500 MG CHEW PO ×3 (08:43→17:35)
[2017-12-17] MEDS: ASPIRIN (EC) 325 MG TAB PO (08:45)
[2017-12-17] MEDS: METOPROLOL 25 MG TAB PO ×2 (08:45→21:04)
[2017-12-17] MEDS: LACTOBACILLUS RHAMNOSUS CAP PO ×2 (08:45→21:03)
[2017-12-17] MEDS: HEPARIN 5,000 UNIT/0.5 ML VIAL SC ×2 (08:47→21:07)
[2017-12-17] MEDS: SENNA TAB PO (08:47)
[2017-12-17] MEDS: predniSONE 10 MG TAB PO (09:07)
[2017-12-17] MEDS: SEVELAMER CARBONATE 0.8 GM PKT PO ×3 (09:08→17:48)
[2017-12-17] MEDS: HEPARIN 1000 UNITS/ML 10 ML INJ CATHETER (21:02)
[2017-12-17] MEDS: ATORVASTATIN 80 MG TAB PO (21:03)
[2017-12-17] MEDS: AMIKACIN 500 MG in SOD CHLORIDE 0.9% 100 ML IVPB (21:07)
[2017-12-18] MEDS: LANSOPRAZOLE 30 MG CAP PO (06:36)
[2017-12-18] MEDS: Insulin NOVOLOG SS MILD Algorithm (SS with meals and bedtime) SC (07:35)
[2017-12-18] MEDS: SEVELAMER CARBONATE 0.8 GM PKT PO ×3 (08:03→17:31)
[2017-12-18] MEDS: LANTHANUM 500 MG CHEW PO ×3 (08:03→17:31)
[2017-12-18] MEDS: LACTOBACILLUS RHAMNOSUS CAP PO ×2 (08:41→21:47)
[2017-12-18] MEDS: ASPIRIN (EC) 325 MG TAB PO (08:41)
[2017-12-18] MEDS: HEPARIN 5,000 UNIT/0.5 ML VIAL SC ×2 (08:42→21:49)
[2017-12-18] MEDS: SENNA TAB PO (08:42)
[2017-12-18] MEDS: MULTIVITAMINS/MINERALS TAB PO (08:42)
[2017-12-18] MEDS: predniSONE 10 MG TAB PO (08:42)
[2017-12-18] MEDS: EUCERIN 113 GM CR TOP ×2 (08:43→21:00)
[2017-12-18] MEDS: METOPROLOL 25 MG TAB PO ×2 (08:43→21:48)
[2017-12-18 13:03] LABS: HEPATITIS B SURFACE ANTIGEN NEGATIVE (NEGATIVE)
[2017-12-18 13:21] LABS: HEPATITIS B CORE ANTIBODY NEGATIVE (NEGATIVE)
[2017-12-18] MEDS: ATORVASTATIN 80 MG TAB PO (21:47)
[2017-12-19] MEDS: LANSOPRAZOLE 30 MG CAP PO (06:46)
[2017-12-19 07:19] LABS: ADD MAN DIFF? NO
[2017-12-19 07:27] LABS: WHITE BLOOD COUNT 7.2 10^3/ul (4.8-10.8)
[2017-12-19 07:27] LABS: BASOPHIL # 0.1 10^3/ul (0.0-0.1); BASOPHILS % 0.8 % (0.0-2.0); EOSINOPHILS # 0.2 10^3/ul (0.0-0.5); EOSINOPHILS % 2.1 % (0.0-7.0); HEMATOCRIT 35.8 % (42.0-52.0); HEMOGLOBIN 11.6 g/dl (14.0-18.0); LYMPHOCYTES # 1.6 10^3/ul (0.8-2.9); LYMPHOCYTES % 21.9 % (15.0-51.0); MEAN CORPUSCULAR HEMOGLOBIN 29.9 pg (29.0-33.0); MEAN CORPUSCULAR HGB CONC 32.4 g/dl (32.0-37.0); MEAN CORPUSCULAR VOLUME 92.3 fl (82.0-101.0); MEAN PLATELET VOLUME 10.4 fl (7.4-10.4); MONOCYTE # 0.6 10^3/ul (0.3-0.9); MONOCYTES % 8.9 % (0.0-11.0); NEUTROPHIL # 4.7 10^3/ul (1.6-7.5); NEUTROPHILS % 65.9 % (39.0-77.0); PLATELET COUNT 249 10^3/UL (140-415); RED BLOOD COUNT 3.88 10^6/ul (4.70-6.10); RED CELL DISTRIBUTION WIDTH 17.8 % (11.5-14.5)
[2017-12-19] MEDS: Insulin NOVOLOG SS MILD Algorithm (SS with meals and bedtime) SC (07:35)
[2017-12-19] MEDS: LANTHANUM 500 MG CHEW PO (07:55)
[2017-12-19] MEDS: SEVELAMER CARBONATE 0.8 GM PKT PO (07:55)
[2017-12-19 08:00] LABS: ANION GAP 17 (8-16); BLOOD UREA NITROGEN 39 mg/dl (7-20); CALCIUM 8.4 mg/dl (8.4-10.2); CARBON DIOXIDE 28 mmol/L (21-31); CHLORIDE 99 mmol/L (97-110); CREATININE 5.73 mg/dl (0.61-1.24); GLUCOSE 85 mg/dl (70-220); MAGNESIUM 2.2 mg/dl (1.7-2.5); POTASSIUM 3.6 mmol/L (3.5-5.1); SODIUM 140 mmol/L (135-144)
[2017-12-19] MEDS: HEPARIN 5,000 UNIT/0.5 ML VIAL SC (08:34)
[2017-12-19] MEDS: LACTOBACILLUS RHAMNOSUS CAP PO (08:34)
[2017-12-19] MEDS: ASPIRIN (EC) 325 MG TAB PO (08:34)
[2017-12-19] MEDS: METOPROLOL 25 MG TAB PO (08:35)
[2017-12-19] MEDS: MULTIVITAMINS/MINERALS TAB PO (08:35)
[2017-12-19] MEDS: SENNA TAB PO (08:35)
[2017-12-19] MEDS: EUCERIN 113 GM CR TOP (08:36)
[2017-12-19] MEDS: predniSONE 5 MG TAB PO (08:56)
[2017-12-19] MEDS: HEPARIN 1000 UNITS/ML 10 ML INJ CATHETER (12:30)
[2017-12-19] MEDS: AMIKACIN 500 MG in SOD CHLORIDE 0.9% 100 ML IVPB (12:31)
== END 2017-12-19 14:51 | disposition home health service (06) | DRG 91 ==
LOC: VRC 15:33
PROC: F07Z5ZZ Bed Mobility Treatment (ICD-10-PCS; 2017-12-08)
PROC: F08Z2ZZ Grooming/Personal Hygiene Treatment (ICD-10-PCS; 2017-12-08)
PROC: F06Z6ZZ Communicative/Cognitive Integration Skills Treatment (ICD-10-PCS; 2017-12-08)
PROC: 3E0F7GC Introduction of Other Therapeutic Substance into Respiratory Tract, Via Natural or Artificial Opening (ICD-10-PCS; 2017-12-08)
PROC: 5A1D70Z Performance of Urinary Filtration, Intermittent, Less than 6 Hours Per Day (ICD-10-PCS; 2017-12-10)
PROC: 5A1D70Z Performance of Urinary Filtration, Intermittent, Less than 6 Hours Per Day (ICD-10-PCS; 2017-12-11)
PROC: 5A1D70Z Performance of Urinary Filtration, Intermittent, Less than 6 Hours Per Day (ICD-10-PCS; 2017-12-12)
PROC: 5A1D70Z Performance of Urinary Filtration, Intermittent, Less than 6 Hours Per Day (ICD-10-PCS; 2017-12-13)
PROC: 5A09357 Assistance with Respiratory Ventilation, Less than 24 Consecutive Hours, Continuous Positive Airway Pressure (ICD-10-PCS; 2017-12-14)
PROC: 5A1D70Z Performance of Urinary Filtration, Intermittent, Less than 6 Hours Per Day (ICD-10-PCS; 2017-12-15)
PROC: 5A1D70Z Performance of Urinary Filtration, Intermittent, Less than 6 Hours Per Day (ICD-10-PCS; 2017-12-16)
PROC: 5A1D70Z Performance of Urinary Filtration, Intermittent, Less than 6 Hours Per Day (ICD-10-PCS; 2017-12-17)
PROC: 5A1D70Z Performance of Urinary Filtration, Intermittent, Less than 6 Hours Per Day (ICD-10-PCS; principal; 2017-12-19)
DX: G72.9 Myopathy, unspecified (principal); G93.40 Encephalopathy, unspecified; N18.6 End stage renal disease; I12.0 Hypertensive chronic kidney disease with stage 5 chronic kidney disease or end stage renal disease; Z68.42 Body mass index [BMI] 45.0-49.9, adult; N17.9 Acute kidney failure, unspecified; L03.116 Cellulitis of left lower limb; N39.0 Urinary tract infection, site not specified; Z99.2 Dependence on renal dialysis; R13.10 Dysphagia, unspecified; R73.03 Prediabetes; G47.33 Obstructive sleep apnea (adult) (pediatric); E66.01 Morbid (severe) obesity due to excess calories; R00.0 Tachycardia, unspecified; R07.9 Chest pain, unspecified; D64.9 Anemia, unspecified; F32.9 Major depressive disorder, single episode, unspecified; N49.2 Inflammatory disorders of scrotum; R53.81 Other malaise
CPT/HCPCS: 80048; 80053; 81001; 82962; 83735; 84100; 85025; 86704; 87081; 87086; 87340; 90935; 92526; 92610; 97110; 97116; 97163; 97167; 97530; 97535; 97542